=== PATIENT | female | born 1975 | race American Indian/Alaskan Native ===

== ENCOUNTER 2017-02-24 11:20 | Emergency (ER) | payer SELFPAY ==
[2017-02-24 11:30] VITALS: O2SAT 97
[2017-02-24 11:55] VITALS: BMI 34.2
--- NOTE | 2017-02-24 12:20 | ED PDOC ---
Arrival/HPI - General Chief Complaint: Chest Pain Time Seen by Provider: 02/24/17 11:26 Historian: Patient - History of Present Illness Narrative History of Present Illness (Text): 02/24/17 12:18The pt is a 41yo female, Past medical history of asthma, hypertension, TIA, presents to the Emergency department for evaluation of chest pain, present since last night. Pt reports she was laying in bed and felt stressed; reports intermittent and sharp pain to her left ribs and chest. Also reports anxiety with associated palpitations. Pt reports she woke up this morning and her symptoms were still present, prompting her visit to the Emergency department. She denies any chest pain at present and offers no additional medical complaints. PMD: Dr. Brown Time/Duration: Other (since last night) Quality: Other (intermittnent, sharp) Past Medical History - Provider Review Nursing Documentation Reviewed: Yes - Past History Past History: Non-Contributing - Infectious Disease Hx of Infectious Diseases: None - Tetanus Immunization Tetanus Immunization: Up to Date - Past Medical History Past Medical History: No Previous - Cardiac Hx Cardiac Disorders: Yes Hx Hypertension: Yes Hx Mitral Valve Prolapse: (mitral valve regurgitation) - Pulmonary Hx Asthma: Yes - Neurological Hx Neurological Disorder: Yes Hx Transient Ischemic Attacks (TIA): Yes Other/Comment: hypo kalemia - HEENT Hx HEENT Disorder: No - Renal Hx Renal Disorder: No - Endocrine/Metabolic Hx Endocrine Disorders: No - Hematological/Oncological Hx Blood Disorders: No - Integumentary Hx Dermatological Disorder: No - Musculoskeletal/Rheumatological Hx Musculoskeletal Disorders: No - Gastrointestinal Hx Gastrointestinal Disorders: No - Genitourinary/Gynecological Hx Genitourinary Disorders: No - Psychiatric Hx Psychophysiologic Disorder: Yes Hx Anxiety: Yes Hx Substance Use: No - Surgical History Hx Cholecystectomy: Yes - Anesthesia Hx Anesthesia: Yes Hx Anesthesia Reactions: No Hx Malignant Hyperthermia: No - Suicidal Assessment Feels Threatened In Home Enviroment: No Family/Social History Family/Social History: Unknown Family HX Smoking Status: Current Some Days Smoker Hx Alcohol Use: No Hx Substance Use: No Hx Substance Use Treatment: No Allergies/Home Meds Allergies/Adverse Reactions: Allergies aleeve Allergy (Uncoded 02/24/17 11:57) RASH seafood Allergy (Uncoded 02/24/17 11:56) ANAPHYLAXIS Home Medications: Home Meds Medication Instructions Recorded Confirmed Metoprolol Succinate 50 mg PO DAILY 09/24/14 04/27/15 Alprazolam [Alprazolam] 2 mg PO DAILY 04/03/15 04/27/15 Review of Systems - Review of Systems Cardiovascular: Other (left sided rib pain) Psychiatric: Anxiety Physical Exam Vital Signs Pulse Resp BP Pulse Ox 02/24/17 11:29 70 16 142/90 97 Appearance: Positive for: Well-Appearing, Non-Toxic, Comfortable - Systems Exam Head: Present: Atraumatic, Normocephalic Pupils: Present: PERRL Extroacular Muscles: Present: EOMI Conjunctiva: Present: Normal Mouth: Present: Moist Mucous Membranes Neck: Present: Normal Range of Motion Respiratory/Chest: Present: Clear to Auscultation, Good Air Exchange. No: Respiratory Distress, Accessory Muscle Use Cardiovascular: Present: Regular Rate and Rhythm, Normal S1, S2. No: Murmurs Abdomen: Present: Normal Bowel Sounds. No: Tenderness, Distention, Peritoneal Signs Back: Present: Normal Inspection Upper Extremity: Present: Normal Inspection. No: Cyanosis, Edema Lower Extremity: Present: Normal Inspection. No: Edema Neurological: Present: GCS=15, CN II-XII Intact, Speech Normal Skin: Present: Warm, Dry, Normal Color. No: Rashes Psychiatric: Present: Alert, Oriented x 3, Normal Insight, Normal Concentration Medical Decision Making ED Course and Treatment: 02/24/17 12:21 Impression: Chest pain secondary to anxiety; low risk for ACS Differential Diagnosis included but are not limited to: Plan: -- Cardiac ISO -- CMP -- CBC -- Magnesium -- CXR -- Reassess and disposition Progress Notes: 02/24/17 13:00 HEART Score 1. Low risk for ACS and symptoms have been constant since last night with a negative troponin. Currently patient still does not have any symptoms. She feels better and wants to go home with follow up. She will make sure to follow up with Dr. Brown and a appliance repair technician. Advised to return to the ED if symptoms worsen or any other concern. - Lab Interpretations Lab Results: 02/24/17 11:40 02/24/17 11:40 Lab Results 02/24/17 11:40: Sodium 140, Potassium 3.5 L, Chloride 106, Carbon Dioxide 27, Anion Gap 11, BUN 13, Creatinine 0.7, Est GFR ( Amer) > 60, Est GFR (Non- Af Amer) > 60, Random Glucose 84, Calcium 8.9, Magnesium 1.9, Total Bilirubin 1.1, AST 23, ALT 24, Alkaline Phosphatase 48, Lactate Dehydrogenase 368, Total Creatine Kinase 117, Troponin I < 0.01, Total Protein 7.2, Albumin 3.8, Globulin 3.4, Albumin/Globulin Ratio 1.1 02/24/17 11:40: WBC 7.5 D, RBC 4.55, Hgb 13.5, Hct 39.9, MCV 87.7, MCH 29.7, MCHC 33.8, RDW 12.8, Plt Count 228, MPV 10.2, Gran % 62.1, Lymph % (Auto) 26.1, Pierce % (Auto) 7.2 H, Eos % (Auto) 4.1, Baso % (Auto) 0.5, Gran # 4.67, Lymph # 2.0, Pierce # 0.5, Eos # 0.3, Baso # 0.04 I have reviewed the lab results: Yes Interpretation: Abnormal lab values (potassium low and replaced) - RAD Interpretation Radiology Orders: 02/24/17 12:05 CHEST PORTABLE [RAD] Stat Caul Dresser: ED Physician - Medication Orders Current Medication Orders: Discontinued Medications Potassium Chloride (K-Dur 20 Meq Er Tab) 40 meq PO STAT STA Stop: 02/24/17 12:46 Last Admin: 02/24/17 12:53 Dose: 40 meq - Ivisibe Statement The provider has reviewed the documentation as recorded by the Delfino Sol Provider Scribe Attestation: All medical record entries made by the Delfino were at my direction and personally dictated by me. I have reviewed the chart and agree that the record accurately reflects my personal performance of the history, physical exam, medical decision making, and the department course for this patient. I have also personally directed, reviewed, and agree with the discharge instructions and disposition. Disposition/Present on Arrival - Present on Arrival Any Indicators Present on Arrival: No History of DVT/PE: No History of Uncontrolled Diabetes: No Urinary Catheter: No History of Decub. Ulcer: No History Surgical Site Infection Following: None - Disposition Have Diagnosis and Disposition been Completed?: Yes Diagnosis: Atypical chest pain Disposition: HOME/ ROUTINE Disposition Time: 13:02 Patient Plan: Discharge Patient Problems: Current Active Problems Problem Status Onset Atypical chest pain Acute Condition: IMPROVED Discharge Instructions (ExitCare): Chest Pain (ED) Additional Instructions: Ms Garnica, thank you for letting us take care of you today. Your provider was Dr. Aviles. You were treated for Chest Pain. The emergency medical care you received today was directed at your acute symptoms. If you were prescribed any medication, please fill it and take as directed. It may take several days for your symptoms to resolve. Return to the Emergency Department if your symptoms worsen, do not improve, or if you have any other problems. Please contact your doctor or call one of the physicians/clinics you have been referred to that are listed on the Patient Visit Information form that is included in your discharge packet. Bring any paperwork you were given at discharge with you along with any medications you are taking to your follow up visit. Our treatment cannot replace ongoing medical care by a primary care provider (PCP) outside of the emergency department. Thank you for allowing the [facility] team to be part of your care today. If you had an X-Ray or CT scan: A Radiologist will review the ED reading if any change in treatment is needed we will contact you. If you had a blood, urine, or wound culture: It will take several days for the results, if any change in treatment is needed we will contact you. If you had an STI test: It will take 48 hours for the results. Please call after 1 week if you have not heard back. Referrals: Kb Brown MD [Medical Doctor] - Follow up with primary Forms: [employer] (Romanian), WORK NOTE
[2017-02-24 12:30] LABS: BASO # 0.04 K/mm3 (0.0-2.0); BASO % 0.5 % (0.0-3.0); EOS # 0.3 (0.0-0.7); EOS % 4.1 % (1.5-5.0); GRAN # 4.67 (1.4-6.5); GRAN % 62.1 % (50.0-68.0); HEMOGLOBIN 13.5 gm/dL (12.0-16.0); LYMPH % 26.1 % (22.0-35.0); MEAN CELL VOLUME 87.7 fL (80.0-105.0); MEAN CORPUSCULAR HEMOGLOBIN 29.7 pg (25.0-35.0); MEAN CORPUSCULAR HGB CONC 33.8 g/dl (31.0-37.0); MEAN PLATELET VOLUME 10.2 fl (7.0-11.0); MONO # 0.5 (0.1-0.6); MONO % 7.2 % (1.0-6.0); PLATELET COUNT 228 10^3/uL (120.0-450.0); RBC 4.55 10^6/uL (3.5-6.1); RED CELL DISTRIBUTION WIDTH 12.8 % (11.5-14.5); WHITE BLOOD COUNT 7.5 10^3/ul (4.5-11.0)
[2017-02-24 12:43] LABS: ALB/GLOB RATIO 1.1 (1.1-1.8); ALBUMIN 3.8 g/dL (3.0-4.8); ALT/SGPT 24 U/L (7-56); AST/SGOT 23 U/L (15-39); BLOOD UREA NITROGEN 13 mg/dL (7-21); CALCIUM 8.9 mg/dL (8.4-10.5); GFR AFRICAN-AMERICAN > 60; GFR NON-AFRICAN AMERICAN > 60; MAGNESIUM 1.9 mg/dL (1.7-2.2)
[2017-02-24] MEDS ORDERED: Potassium Chloride 20 mEq ER Tab PO STA (12:45)
[2017-02-24 12:54] LABS: TROPONIN I < 0.01 ng/mL
[2017-02-24 13:03] VITALS: BP 138/83; PULSE 65; RESP 18; TEMP 98
--- NOTE | 2017-02-24 13:03 | RAD ---
HISTORY: chest pain COMPARISON: 09/24/2014 FINDINGS: LUNGS: No active pulmonary disease. PLEURA: No significant pleural effusion identified, no pneumothorax apparent. CARDIOVASCULAR: Normal. OSSEOUS STRUCTURES: No significant abnormalities. VISUALIZED UPPER ABDOMEN: Normal. OTHER FINDINGS: None. IMPRESSION: No active disease.
--- NOTE | 2017-02-25 16:46 | CARD ---
APPROVED REPORT EKG Measurement Heart [id number] <Conclusion> Normal sinus rhythm Anterior infarct, age undetermined Abnormal ECG
== END 2017-02-24 13:04 | disposition home or self-care (01) ==
LOC: ED 11:20
DX: R07.89 Other chest pain (principal); I10 Essential (primary) hypertension

== ENCOUNTER 2017-05-04 18:07 | Emergency (ER) | payer MEDICAID, OTHER ==
[2017-05-04 18:07] VITALS: BMI 34.2
[2017-05-04 18:16] VITALS: RESP 18; TEMP 98.1; O2SAT 100
--- NOTE | 2017-05-04 18:20 | ED PDOC ---
"Arrival/HPI - General Chief Complaint: Female Genitourinary Time Seen by Provider: 05/04/17 18:13 Historian: Patient - History of Present Illness Narrative History of Present Illness (Text): 05/04/17 18:17 42 y/o female, pmh including colitis/gastritis, allergic to nsaid, c/o left sided abdominal pain x 3 days. Pt. lt. sided abdominal pain with the lt. suprapubic pressure, burning senation, no vaginal bleeding or discharge, no flank pain, no nigh sweat, no dizziness, no nausea or vomiting, no change in energy level or appetite, no other medical or psychological complaints. Past Medical History - Provider Review Nursing Documentation Reviewed: Yes - Past History Past History: Non-Contributing - Infectious Disease Hx of Infectious Diseases: None - Tetanus Immunization Tetanus Immunization: Up to Date - Past Medical History Past Medical History: No Previous - Cardiac Hx Cardiac Disorders: Yes Hx Hypertension: Yes Hx Mitral Valve Prolapse: (mitral valve regurgitation) - Pulmonary Hx Asthma: Yes - Neurological Hx Neurological Disorder: Yes Hx Transient Ischemic Attacks (TIA): Yes Other/Comment: hypo kalemia - HEENT Hx HEENT Disorder: No - Renal Hx Renal Disorder: No - Endocrine/Metabolic Hx Endocrine Disorders: No - Hematological/Oncological Hx Blood Disorders: No - Integumentary Hx Dermatological Disorder: No - Musculoskeletal/Rheumatological Hx Musculoskeletal Disorders: No - Gastrointestinal Hx Gastrointestinal Disorders: No - Genitourinary/Gynecological Hx Genitourinary Disorders: No - Psychiatric Hx Psychophysiologic Disorder: Yes Hx Anxiety: Yes Hx Substance Use: No - Surgical History Hx Cholecystectomy: Yes - Anesthesia Hx Anesthesia: Yes Hx Anesthesia Reactions: No Hx Malignant Hyperthermia: No - Suicidal Assessment Feels Threatened In Home Enviroment: No Family/Social History - Physician Review Nursing Documentation Reviewed: Yes Family/Social History: Unknown Family HX Smoking Status: Former Smoker Hx Alcohol Use: No Hx Substance Use: No Hx Substance Use Treatment: No Allergies/Home Meds Allergies/Adverse Reactions: Allergies aleeve Allergy (Uncoded 05/04/17 18:16) RASH seafood Allergy (Uncoded 05/04/17 18:16) ANAPHYLAXIS Home Medications: Home Meds Medication Instructions Recorded Confirmed Metoprolol Succinate 50 mg PO DAILY 09/24/14 05/04/17 Alprazolam [Alprazolam] 2 mg PO DAILY 04/03/15 05/04/17 Review of Systems - Review of Systems Constitutional: absent: Fatigue, Fevers Eyes: absent: Vision Changes ENT: absent: Hearing Changes Respiratory: absent: SOB, Cough Cardiovascular: absent: Chest Pain Gastrointestinal: Abdominal Pain. absent: Nausea, Vomiting Genitourinary Female: absent: Hematuria, Urine Output Changes, Vaginal Bleeding , Vaginal Discharge Skin: absent: Rash, Pruritis Neurological: absent: Headache, Dizziness Physical Exam Vital Signs Reviewed: Yes Vital Signs Temp Pulse Resp BP Pulse Ox 05/04/17 21:34 81 18 141/71 100 05/04/17 18:09 98.1 F 87 18 128/86 100 Temperature: Afebrile Blood Pressure: Normal Pulse: Regular Respiratory Rate: Normal Appearance: Positive for: Well-Appearing, Non-Toxic, Comfortable Pain Distress: Mild Mental Status: Positive for: Alert and Oriented X 3 - Systems Exam Head: Present: Atraumatic, Normocephalic Pupils: Present: PERRL Extroacular Muscles: Present: EOMI Conjunctiva: Present: Normal Mouth: Present: Moist Mucous Membranes Neck: Present: Normal Range of Motion Respiratory/Chest: Present: Clear to Auscultation, Good Air Exchange. No: Respiratory Distress, Accessory Muscle Use Cardiovascular: Present: Regular Rate and Rhythm, Normal S1, S2. No: Murmurs Abdomen: Present: Tenderness (+LLQ and abdomen region), Normal Bowel Sounds. No : Distention, Peritoneal Signs, Rebound, Guarding Genitourinary/Pelvic Exam: Present: Other (pt. deferred) Back: Present: Normal Inspection. No: CVA Tenderness, Midline Tenderness, Paraspinal Tenderness, Pain with Leg Raise Upper Extremity: Present: Normal Inspection. No: Cyanosis, Edema Lower Extremity: Present: Normal Inspection. No: Edema Neurological: Present: GCS=15, Speech Normal, Motor Func Grossly Intact, Gait Normal, Memory Normal Skin: Present: Warm, Dry, Normal Color. No: Rashes Psychiatric: Present: Alert, Oriented x 3, Normal Insight, Normal Concentration Medical Decision Making ED Course and Treatment: 05/04/17 18:21 -ua/ -observe and reassess 05/04/17 19:02 -UA show no UTI -Urine hcg negative -Pt. refused pelvic, refused HIV and STI test as she feels this is not obgyn related or STD related problem, refused prophylatic treatment as well. -labs/CT abdomen and pelvis ordered -IVF/pepcid, observe an reassess 05/04/17 21:50 -labs show no acute findings except wbc 11.4 which she has no fever or chills, likely stress induced. -pelvic/transvaginal sonogram show: no ovarian torsion but Uterus: Endometrium measures approximately 7.4 mm in width. There is a 1 point to by 1 x 1.3 cm posterior fibroid. Myometrium is mildly heterogeneous. Right ovary: Right ovary measures approximately 2.55 x 2.17 x 2.48 cm. There are multiple small follicles. There is intraovarian blood flow. Left ovary: Left ovary measures approximately 4.34 x 2.33 x 2.34 cm. There are multiple small follicles. There is intraovarian blood flow. Free fluid: There is a small amount of free fluid in the pelvis. Bladder: Bladder is empty IMPRESSION: No torsion; small uterine fibroid -CT abdomen and pelvis : No acute solid visceral abnormality; cholecystectomy; probable fibroid uterus; small amount of fluid in the pelvis, physiologic versus recent cyst rupture; constipation -Pain resolved, discussed about the labs/radiology results with the patient, magnesium citrate ordered. -Discharge home with tylenol, magnesium citrate, follow up with your own pmd and GI/Obyn within 2 days, high fiber diet, return to the ER for any new or worsening signs or symptoms. - Lab Interpretations Lab Results: 05/04/17 19:37 05/04/17 19:37 Lab Results 05/04/17 19:37: WBC 11.4 H D, RBC 4.52, Hgb 13.3, Hct 39.3, MCV 86.9, MCH 29.4, MCHC 33.8, RDW 12.8, Plt Count 202, MPV 9.7, Gran % 57.8, Lymph % (Auto) 27.0, Carver % (Auto) 6.0, Eos % (Auto) 8.8 H, Baso % (Auto) 0.4, Gran # 6.55 H, Lymph # 3.1, Carver # 0.7 H, Eos # 1.0 H, Baso # 0.05 05/04/17 19:37: Sodium 138, Potassium 3.9, Chloride 103, Carbon Dioxide 27, Anion Gap 12, BUN 13, Creatinine 0.7, Est GFR ( Amer) > 60, Est GFR (Non- Af Amer) > 60, Random Glucose 106, Calcium 8.8, Total Bilirubin 0.9, AST 32, ALT 30, Alkaline Phosphatase 58, Total Protein 7.5, Albumin 3.7, Globulin 3.7, Albumin/Globulin Ratio 1.0 L, Lipase 112 05/04/17 18:23: Urine Color Yellow, Urine Appearance Clear, Urine pH 6.0, Ur Specific [place] >= 1.030, Urine Protein Negative, Urine Glucose (UA) Negative, Urine Ketones Negative, Urine Blood Negative, Urine Nitrate Negative, Urine Bilirubin Negative, Urine Urobilinogen 1.0 H, Ur Leukocyte Esterase Negative I have reviewed the lab results: Yes Interpretation: Abnormal lab values (wbc 11.4) - RAD Interpretation Radiology Orders: 05/04/17 19:00 ABD PELVIS PO & IV CONTRAST [CT] Stat 05/04/17 19:03 TRANSVAGINAL [US] Stat Transvaginal: CLINICAL HISTORY: 42 years old, female; Pain; Pelvic pain; Additional info: Lt. Sided pelvic pain LMP 04/17/17 TECHNIQUE: Real-time transabdominal pelvic ultrasound (complete) with image documentation. COMPARISON: Pelvic ultrasound 04/03/15 FINDINGS: Uterus: Uterus measures approximately 9.4 x 6.2 x 7.3 cm. Endometrium measures approximately 6 mm in width. Myometrium is heterogeneous. Right ovary: Right ovary measures approximately 2.8 x 2 x 2.4 cm. There are multiple small follicles. There is intraovarian blood flow. Left ovary: Left ovary measures approximately 3.2 x 2.4 x 2.2 cm. There are multiple small follicles. There is intraovarian blood flow. Free fluid:There is trace free fluid. Bladder: Bladder is empty and cannot be evaluated IMPRESSION: Unremarkable transabdominal pelvic ultrasound EXAM: NOLAN MYLES | Final Radiology Report CONFIDENTIALITY STATEMENT This report is intended only for use by the referring physician, and only in accordance with law. If you received this in error, call [phone]. Page 2 of 2 US Pelvis, Transvaginal EXAM DATE/TIME: 05/04/2017 7:03 PM CLINICAL HISTORY: 42 years old, female; Pain; Pelvic pain; Additional info: Lt. Sided pelvic pain LMP 04/17/17 TECHNIQUE: Real-time transvaginal pelvic ultrasound (complete) with image documentation. Transvaginal imaging was used for better evaluation of the endometrium and adnexa. COMPARISON: US - TRANSVAGINAL 04/03/2015 7:19:29 PM FINDINGS: Uterus: Endometrium measures approximately 7.4 mm in width. There is a 1 point to by 1 x 1.3 cm posterior fibroid. Myometrium is mildly heterogeneous. Right ovary: Right ovary measures approximately 2.55 x 2.17 x 2.48 cm. There are multiple small follicles. There is intraovarian blood flow. Left ovary: Left ovary measures approximately 4.34 x 2.33 x 2.34 cm. There are multiple small follicles. There is intraovarian blood flow. Free fluid: There is a small amount of free fluid in the pelvis. Bladder: Bladder is empty IMPRESSION: No torsion; small uterine fibroid - ..... Thank you for allowing us to participate in the care of your patient. Dictated and Authenticated by: Cheri Arora MD 05/04/2017 9:12 PM Eastern Time ([place] & [place]) CT Abdomen and pelvis: FINDINGS: Lower thorax: Heart size is normal. There is a small hiatal hernia. There is minimal scarring at the lung bases. ABDOMEN: Liver: unremarkable Gallbladder and bile ducts: Gallbladder is surgically absent. Common duct is unremarkable. Pancreas: unremarkable Spleen: unremarkable Adrenals: unremarkable Kidneys and ureters: There is right renal scarring. Left kidney is unremarkable.There is no pelvocaliectasis or ureterectasis. NOLAN MYLES | Final Radiology Report CONFIDENTIALITY STATEMENT This report is intended only for use by the referring physician, and only in accordance with law. If you received this in error, call [phone]. Page 2 of 2 Stomach and bowel: Stomach is distended with an air-fluid level. Rotation is normal. Small bowel is incompletely opacified with oral contrast. There is no obstruction. Terminal ileum is unremarkable. Appendix is unremarkable. There is a moderately large amount of stool in the colon. Appendix: See above. PELVIS: Bladder: unremarkable Reproductive: Uterus is mildly enlarged. There is a corpus luteum in the right ovary. Left ovary is unremarkable. ABDOMEN and PELVIS: Intraperitoneal space: There is a small amount of fluid in the cul-de-sac. There is no free air. Bones/joints: There are no acute osseous abnormalities Soft tissues: There is a small fat containing umbilical hernia. Vasculature: There are calcified phleboliths. Vascular structures are unremarkable. Lymph nodes: There is no pathologic adenopathy. IMPRESSION: No acute solid visceral abnormality; cholecystectomy; probable fibroid uterus; small amount of fluid in the pelvis, physiologic versus recent cyst rupture; constipation Thank you for allowing us to participate in the care of your patient. Dictated and Authenticated by: Cheri Arora MD 05/04/2017 9:43 PM Eastern Time ([place] & [place]) Media Librarian: Radiologist - Medication Orders Current Medication Orders: Discontinued Medications Famotidine (Pepcid) 20 mg IVP STAT STA Stop: 05/04/17 19:01 Last Admin: 05/04/17 19:42 Dose: 20 mg Sodium Chloride (Sodium Chloride 0.9%) 1,000 mls @ 999 mls/hr IV .Q1H1M STA Stop: 05/04/17 20:00 Last Admin: 05/04/17 19:42 Dose: 999 mls/hr Iohexol (Omnipaque 240 (50 Ml)) Confirm Administered Dose 50 ml .ROUTE .STK-MED ONE Stop: 05/04/17 19:05 Iohexol (Omnipaque 350 100 Ml) Confirm Administered Dose 350 mg .ROUTE .STK-MED ONE Stop: 05/04/17 20:19 - PA / COUNTY DIRECTOR WELFARE / Resident Statement MD/DO has reviewed & agrees with the documentation as recorded. Disposition/Present on Arrival - Present on Arrival Any Indicators Present on Arrival: No History of DVT/PE: No History of Uncontrolled Diabetes: No Urinary Catheter: No History of Decub. Ulcer: No History Surgical Site Infection Following: None - Disposition Have Diagnosis and Disposition been Completed?: Yes Diagnosis: Uterine fibroid, Ovarian cyst, Constipation Disposition: HOME/ ROUTINE Disposition Time: 18:22 Patient Plan: Discharge Patient Problems: Current Active Problems Problem Status Onset Uterine fibroid Acute Ovarian cyst Acute Condition: IMPROVED Additional Instructions: Discharge home with tylenol, magnesium citrate, follow up with your own pmd and GI/Obyn within 2 days, high fiber diet, return to the ER for any new or worsening signs or symptoms. Prescriptions: Acetaminophen [Tylenol Extra Strength] 500 mg PO QID PRN #30 tablet PRN Reason: Other Referrals: Kb Brown MD [Primary Care Provider] - Follow up with primary Heide CLARK,MD Sammy [Medical Doctor] - Follow up with primary Niesha Davis MD [Staff Provider] - Follow up with primary Forms: [facility] [employer] (Greenlandic), WORK NOTE"
[2017-05-04 18:35] LABS: URINE BILIRUBIN NEGATIVE (NEGATIVE); URINE BLOOD NEGATIVE (NEGATIVE); URINE GLUCOSE (UA) NEGATIVE (NEGATIVE); URINE KETONE NEGATIVE (NEGATIVE); URINE LEUKOCYTE ESTERASE NEGATIVE Leu/uL (NEGATIVE); URINE PROTEIN NEGATIVE mg/dL (<30 mg/dL)
[2017-05-04 18:50] LABS: URINE APPEARANCE CLEAR (CLEAR); URINE COLOR YELLOW (YELLOW)
[2017-05-04] MEDS ORDERED: Sodium Chloride 0.9% 1,000 ML IV STA (19:00)
[2017-05-04] MEDS ORDERED: Iohexol 240 (50 ml) ONE (19:04)
[2017-05-04 19:58] LABS: BASO # 0.05 K/mm3 (0.0-2.0); BASO % 0.4 % (0.0-3.0); EOS % 8.8 % (1.5-5.0); GRAN # 6.55 (1.4-6.5); GRAN % 57.8 % (50.0-68.0); HEMATOCRIT 39.3 % (36.0-48.0); LYMPH # 3.1 (1.2-3.4); MEAN CELL VOLUME 86.9 fl (80.0-105.0); MEAN CORPUSCULAR HEMOGLOBIN 29.4 pg (25.0-35.0); MEAN CORPUSCULAR HGB CONC 33.8 g/dl (31.0-37.0); MEAN PLATELET VOLUME 9.7 fl (7.0-11.0); MONO # 0.7 (0.1-0.6); RED CELL DISTRIBUTION WIDTH 12.8 % (11.5-14.5); WHITE BLOOD COUNT 11.4 10^3/ul (4.5-11.0)
[2017-05-04 20:08] LABS: ALKALINE PHOSPHATASE 58 U/L (38-126); ALT/SGPT 30 U/L (7-56); AST/SGOT 32 U/L (14-36); BILIRUBIN,TOTAL 0.9 mg/dL (0.2-1.3); BLOOD UREA NITROGEN 13 mg/dL (7-21); CALCIUM 8.8 mg/dL (8.4-10.5); CARBON DIOXIDE 27 mmol/L (21-33); CHLORIDE 103 mmol/L (95-110); GFR AFRICAN-AMERICAN > 60; GLUCOSE,RANDOM 106 mg/dL (70-110); LIPASE 112 U/L (23-300); POTASSIUM 3.9 mmol/L (3.6-5.0); SODIUM 138 mmol/L (132-148); TOTAL PROTEIN 7.5 g/dL (5.8-8.3)
[2017-05-04] MEDS ORDERED: Iohexol 350 MG/100 ML VIAL ONE (20:18)
--- NOTE | 2017-05-04 21:13 | US ---
EXAM: US Pelvis Complete, Transabdominal CLINICAL HISTORY: 42 years old, female; Pain; Pelvic pain; Additional info: Lt. Sided pelvic pain LMP 04/17/17 TECHNIQUE: Real-time transabdominal pelvic ultrasound (complete) with image documentation. COMPARISON: Pelvic ultrasound 04/03/15 FINDINGS: Uterus: Uterus measures approximately 9.4 x 6.2 x 7.3 cm. Endometrium measures approximately 6 mm in width. Myometrium is heterogeneous. Right ovary: Right ovary measures approximately 2.8 x 2 x 2.4 cm. There are multiple small follicles. There is intraovarian blood flow. Left ovary: Left ovary measures approximately 3.2 x 2.4 x 2.2 cm. There are multiple small follicles. There is intraovarian blood flow. Free fluid:There is trace free fluid. Bladder: Bladder is empty and cannot be evaluated IMPRESSION: Unremarkable transabdominal pelvic ultrasound EXAM: US Pelvis, Transvaginal EXAM DATE/TIME: 05/04/2017 7:03 PM CLINICAL HISTORY: 42 years old, female; Pain; Pelvic pain; Additional info: Lt. Sided pelvic pain LMP 04/17/17 TECHNIQUE: Real-time transvaginal pelvic ultrasound (complete) with image documentation. Transvaginal imaging was used for better evaluation of the endometrium and adnexa. COMPARISON: US - TRANSVAGINAL 04/03/2015 7:19:29 PM FINDINGS: Uterus: Endometrium measures approximately 7.4 mm in width. There is a 1 point to by 1 x 1.3 cm posterior fibroid. Myometrium is mildly heterogeneous. Right ovary: Right ovary measures approximately 2.55 x 2.17 x 2.48 cm. There are multiple small follicles. There is intraovarian blood flow. Left ovary: Left ovary measures approximately 4.34 x 2.33 x 2.34 cm. There are multiple small follicles. There is intraovarian blood flow. Free fluid: There is a small amount of free fluid in the pelvis. Bladder: Bladder is empty IMPRESSION: No torsion; small uterine fibroid - .....
[2017-05-04 21:35] VITALS: BP 141/71; PULSE 81
--- NOTE | 2017-05-04 21:44 | CT ---
EXAM: CT Abdomen and Pelvis With Intravenous Contrast EXAM DATE/TIME: 05/04/2017 7:00 PM CLINICAL HISTORY: 42 years old, female; Pain; Abdominal pain; Localized; Left; Additional info: Lt. Sided abdominal pain, burning x 3 days TECHNIQUE: Axial computed tomography images of the abdomen and pelvis with intravenous contrast. All CT scans at this facility use one or more dose reduction techniques, viz.: automated exposure control; ma/kV adjustment per patient size (including targeted exams where dose is matched to indication; i.e. head); or iterative reconstruction technique. Coronal and sagittal reformatted images were created and reviewed. CONTRAST: 100 mL of OMNI administered intravenously. COMPARISON: Prior images are not available for review. FINDINGS: Lower thorax: Heart size is normal. There is a small hiatal hernia. There is minimal scarring at the lung bases. ABDOMEN: Liver: unremarkable Gallbladder and bile ducts: Gallbladder is surgically absent. Common duct is unremarkable. Pancreas: unremarkable Spleen: unremarkable Adrenals: unremarkable Kidneys and ureters: There is right renal scarring. Left kidney is unremarkable.There is no pelvocaliectasis or ureterectasis. Stomach and bowel: Stomach is distended with an air-fluid level. Rotation is normal. Small bowel is incompletely opacified with oral contrast. There is no obstruction. Terminal ileum is unremarkable. Appendix is unremarkable. There is a moderately large amount of stool in the colon. Appendix: See above. PELVIS: Bladder: unremarkable Reproductive: Uterus is mildly enlarged. There is a corpus luteum in the right ovary. Left ovary is unremarkable. ABDOMEN and PELVIS: Intraperitoneal space: There is a small amount of fluid in the cul-de-sac. There is no free air. Bones/joints: There are no acute osseous abnormalities Soft tissues: There is a small fat containing umbilical hernia. Vasculature: There are calcified phleboliths. Vascular structures are unremarkable. Lymph nodes: There is no pathologic adenopathy. IMPRESSION: No acute solid visceral abnormality; cholecystectomy; probable fibroid uterus; small amount of fluid in the pelvis, physiologic versus recent cyst rupture; constipation
[2017-05-04] MEDS ORDERED: Magnesium Citrate Oral SOL (300 ml) PO ONE (21:49)
== END 2017-05-04 22:09 | disposition home or self-care (01) ==
LOC: ED 18:07
DX: K59.00 Constipation, unspecified (principal); D25.9 Leiomyoma of uterus, unspecified; N83.209 Unspecified ovarian cyst, unspecified side
CPT/HCPCS: 74177; 76830; 80053; 81003; 83690; 85025; 96374; 99284; J7040; Q9966; Q9967

== ENCOUNTER → 2017-05-16 | Emergency (ER) | payer OTHER ==
[2017-05-16 04:10] VITALS: BP 128/82; PULSE 73; RESP 17; TEMP 97.8; O2SAT 100
[2017-05-16 04:17] VITALS: BMI 35.6
== END | disposition left against medical advice (07) ==
LOC: ED 04:03
DX: Z02.89 Encounter for other administrative examinations (principal); R51 Headache

== ENCOUNTER 2017-11-04 08:02 | Observation (INO) | payer MEDICAID, OTHER ==
--- NOTE | 2017-11-04 08:40 | ED PDOC ---
Arrival/HPI - General Chief Complaint: Chest Pain Time Seen by Provider: 11/04/17 08:34 Historian: Patient, EMS - History of Present Illness Narrative History of Present Illness (Text): 11/04/17 08:37 pt p/w + < 1 day onset of left sided chest pain, radiating to mid left chest; at most pain is 6-7/10; slightly waxing and waning; pt took yeni seltzer without relief; pt states + mild nausea, no vomiting, no fever/chills/sweats, no sob/palpitations, no lightheadedness/dizziness, no numbness/tingling, no facial changes, no slurr speech, no abd pain, no n/v, no focal weakness, no rashes, no gross bleeding; pt states she was driving her car home when the chest pain occurred; pt states no LOC; no fall/trauma/sick contact, no travel; pt is here for further eval; pt's without other complaints PCP: Ritika Brown Last cardiac check ~ 2012? 2008 dx with TIA pt states she had chest pain in 2011 and was told she had low K Time/Duration: 24 hours Symptom Onset: Sudden Symptom Course: Unchanged Quality: Tightness, Cramping Severity Level: 6, Severe Activities at Onset: Rest Context: Home Past Medical History - Provider Review Nursing Documentation Reviewed: Yes - Travel History Have you recently traveled outside [place] w/in the past 3 mons?: No - Past History Past History: Non-Contributing - Infectious Disease Hx of Infectious Diseases: None - Tetanus Immunization Tetanus Immunization: Up to Date - Reproductive Menopause: No Currently : No - Past Medical History Past Medical History: No Previous - Cardiac Hx Cardiac Disorders: Yes Hx Hypertension: Yes Hx Mitral Valve Prolapse: (mitral valve regurgitation) Other/Comment: Hx of low K+ - Pulmonary Hx Asthma: Yes - Neurological Hx Neurological Disorder: Yes Hx Transient Ischemic Attacks (TIA): Yes Other/Comment: hypo kalemia - HEENT Hx HEENT Disorder: No - Renal Hx Renal Disorder: No - Endocrine/Metabolic Hx Endocrine Disorders: No - Hematological/Oncological Hx Blood Disorders: No - Integumentary Hx Dermatological Disorder: No - Musculoskeletal/Rheumatological Hx Musculoskeletal Disorders: No - Gastrointestinal Hx Gastrointestinal Disorders: No - Genitourinary/Gynecological Hx Genitourinary Disorders: No - Psychiatric Hx Psychophysiologic Disorder: Yes Hx Anxiety: Yes Hx Substance Use: No - Surgical History Hx Cholecystectomy: Yes - Anesthesia Hx Anesthesia: Yes Hx Anesthesia Reactions: No Hx Malignant Hyperthermia: No - Suicidal Assessment Feels Threatened In Home Enviroment: No Family/Social History - Physician Review Nursing Documentation Reviewed: Yes Family/Social History: No Known Family HX Smoking Status: Former Smoker Hx Alcohol Use: No Hx Substance Use: No Hx Substance Use Treatment: No Allergies/Home Meds Allergies/Adverse Reactions: Allergies aleeve Allergy (Uncoded 11/04/17 08:28) RASH seafood Allergy (Uncoded 11/04/17 08:28) ANAPHYLAXIS Home Medications: Home Meds Medication Instructions Recorded Confirmed Metoprolol Succinate 50 mg PO DAILY 09/24/14 11/04/17 Alprazolam [Alprazolam] 2 mg PO DAILY PRN 04/03/15 11/04/17 Albuterol HFA [Ventolin HFA] 1 puff IH QID PRN 11/04/17 11/04/17 Aspirin [Aspirin Chewable] 81 mg PO DAILY 11/04/17 11/04/17 Review of Systems - Review of Systems Constitutional: Normal Eyes: Normal ENT: Normal Respiratory: absent: SOB Cardiovascular: Chest Pain Gastrointestinal: Normal, Nausea. absent: Abdominal Pain, Vomiting Genitourinary Female: Normal Musculoskeletal: Normal Skin: Normal Neurological: Normal Endocrine: Normal Hemo/Lymphatic: Normal Psychiatric: Normal Physical Exam Vital Signs Reviewed: Yes Vital Signs Temp Pulse Pulse Resp BP Pulse Ox 11/04/17 10:39 68 18 122/75 98 11/04/17 08:50 66 11/04/17 08:18 97.8 F 67 18 132/73 97 Temperature: Afebrile Blood Pressure: Normal Pulse: Regular Respiratory Rate: Normal Appearance: Positive for: Well-Appearing, Non-Toxic, Uncomfortable, Other ( uncomfortable, alert/awake, GCS = 15, oriented x 3, NAD, cooperative, resting in bed) Pain Distress: None Mental Status: Positive for: Alert and Oriented X 3 - Systems Exam Head: Present: Atraumatic, Normocephalic Pupils: Present: PERRL, Other (no nystagmus, no photophobia, sclera anicteric, visual field intact b/l) Extroacular Muscles: Present: EOMI Conjunctiva: Present: Normal Ears: Present: Normal Mouth: Present: Moist Mucous Membranes, Normal Teeth, Other (no drooling/stridor , intact dentitions, uvula/tongue are midline) Pharnyx: Present: Normal Nose (External): Present: Atraumatic Nose (Internal): Present: Normal Inspection Neck: Present: Normal Range of Motion, Trachea Midline, Other (intact ROM, no midline tenderness, no nuchal rigidity, no meningeal signs). No: MIDLINE TENDERNESS Respiratory/Chest: Present: Clear to Auscultation, Good Air Exchange, Other ( CTA b/l, no w/r/r). No: Respiratory Distress, Accessory Muscle Use Cardiovascular: Present: Regular Rate and Rhythm, Normal S1, S2. No: Murmurs Abdomen: Present: Normal Bowel Sounds, Other (mild epigastric tenderness, no philip's sign, no mcburney's point tenderness, + well nourished/slightly obese female, no masses/rebound/guarding/rigidity) Back: Present: Normal Inspection. No: CVA Tenderness, Midline Tenderness Upper Extremity: Present: Normal Inspection, Normal ROM, NORMAL PULSES, Neurovascularly Intact, Capillary Refill < 2s Lower Extremity: Present: Normal Inspection, NORMAL PULSES, Normal ROM, Neurovascularly Intact, Capillary Refill < 2 s. No: CALF TENDERNESS, Valentina's Sign Neurological: Present: GCS=15, CN II-XII Intact, Speech Normal, Other (CNII-XII WNL, no facial asymmetries, no slurr speech) Skin: Present: Warm, Normal Color, Other (cap refill < 1sec, no ulcerations, no petechiae, no rashes) Psychiatric: Present: Alert, Oriented x 3 Medical Decision Making ED Course and Treatment: 11/04/17 08:44 Impression: chest pain i have consider all the differential diagnosis regarding pt's chief medical complaints/clinical findings, including but are not limited to: r/o ACS A/P: R/O ACS - labs - iv - acs eval - observe - supportive care 11/04/17 10:[address] Rishi Ross, medical service literacy education professor, made aware of pt's medical complaints, who agrees with admission/observation placement 11/04/17 1030 pt states chest pain is much improved following NTG medication pt is made aware of her medical results agrees with admission/observation placement Re-evaluation Time: 11:25 Reassessment Condition: Improved - Lab Interpretations Lab Results: 11/04/17 08:45 11/04/17 08:45 Lab Results 11/04/17 09:30: Urine Color Yellow, Urine Appearance Clear, Urine pH 5.5, Ur Specific [employer] >= 1.030, Urine Protein Trace H, Urine Glucose (UA) Negative, Urine Ketones Negative, Urine Blood Negative, Urine Nitrate Negative, Urine Bilirubin Negative, Urine Urobilinogen 0.2, Ur Leukocyte Esterase Negative, Urine RBC Negative, Urine WBC 1 - 3, Ur Epithelial Cells 6 - 8, Amorphous Sediment Few, Urine Bacteria Many, Urine Other Fiber 11/04/17 08:45: TSH 3rd Generation 0.77 11/04/17 08:45: Sodium 141, Potassium 4.2, Chloride 108 H, Carbon Dioxide 25, Anion Gap 13, BUN 18, Creatinine 0.7, Est GFR ( Amer) > 60, Est GFR (Non- Af Amer) > 60, Random Glucose 91, Calcium 9.0, Magnesium 2.0, Total Bilirubin 0.5, AST 36, ALT 30, Alkaline Phosphatase 49, Lactate Dehydrogenase 535, Total Creatine Kinase 214, Troponin I < 0.01, NT-Pro-B Natriuret Pep 43.9, Total Protein 7.1, Albumin 3.5, Globulin 3.6, Albumin/Globulin Ratio 1.0 L, Lipase 151 11/04/17 08:45: WBC 10.5, RBC 4.43, Hgb 12.9, Hct 37.6, MCV 84.9, MCH 29.1, MCHC 34.3, RDW 13.9, Plt Count 296, MPV 9.3, Gran % 64.8, Lymph % (Auto) 26.0, [place] % (Auto) 6.6 H, Eos % (Auto) 2.0, Baso % (Auto) 0.6, Gran # 6.82 H, Lymph # (Auto) 2.7, [place] # (Auto) 0.7 H, Eos # (Auto) 0.2, Baso # (Auto) 0.06 I have reviewed the lab results: Yes Interpretation: All labs normal - RAD Interpretation Narrative RAD Interpretations (Text): 11/04/17 11:29 NAD Radiology Orders: 11/04/17 08:34 CHEST TWO VIEWS (PA/LAT) [RAD] Stat Screw Machine Hand: ED Physician - EKG Interpretation EKG Interpretation (Text): 11/04/17 08:44 SR at 65 bpm, borderline 1st degree av block, normal axis, no ectopy, inverted T in leads III, no st changes, ABNL EKG; no gross changes compare with old ekg Interpreted by ED Physician: Yes Type: 12 lead EKG Comparison: Similar to previous EKG - Medication Orders Current Medication Orders: Albuterol/Ipratropium (Duoneb 3 Mg/0.5 Mg (3 Ml) Ud) 3 ml IH Q4H PRN PRN Reason: Shortness of Breath Alprazolam (Xanax) 2 mg PO DAILY PRN PRN Reason: Anxiety Aspirin (Aspirin Chewable) 81 mg PO DAILY MASOUD Enoxaparin Sodium (Lovenox) 40 mg SC DAILY MASOUD PRN Reason: Protocol Sodium Chloride (Sodium Chloride 0.9%) 1,000 mls @ 100 mls/hr IV .Q10H MASOUD Last Admin: 11/04/17 08:47 Dose: 100 mls/hr eMAR Start Stop Document 11/04/17 08:47 [facility] (Rec: 11/04/17 08:48 [facility] [id number]) Intravenous Solution Start Date 11/04/17 Start Time 08:47 Metoprolol Succinate (Toprol Xl) 50 mg PO DAILY MASOUD Pantoprazole Sodium (Protonix Ec Tab) 40 mg PO DAILY MASOUD Discontinued Medications Aspirin (Aspirin Chewable) 81 mg PO STAT STA Stop: 11/04/17 08:37 Last Admin: 11/04/17 08:48 Dose: 81 mg Nitroglycerin (Nitrostat Sl Tab) 0.4 mg SL STAT STA Stop: 11/04/17 08:36 Last Admin: 11/04/17 08:48 Dose: 0.4 mg Disposition/Present on Arrival - Present on Arrival Any Indicators Present on Arrival: No History of DVT/PE: No History of Uncontrolled Diabetes: No Urinary Catheter: No History of Decub. Ulcer: No History Surgical Site Infection Following: None - Disposition Have Diagnosis and Disposition been Completed?: Yes Diagnosis: Chest pain with minimal risk of acute coronary syndrome Disposition: HOSPITALIZED Disposition Time: 10:30 Patient Plan: Observation Condition: STABLE
[2017-11-04] MEDS ORDERED: Sodium Chloride 0.9% 1,000 ML IV SCH (08:45)
[2017-11-04 08:54] LABS: BASO # 0.06 K/mm3 (0.0-2.0); BASO % 0.6 % (0.0-3.0); EOS # 0.2 (0.0-0.7); GRAN # 6.82 (1.4-6.5); GRAN % 64.8 % (50.0-68.0); HEMOGLOBIN 12.9 g/dL (12.0-16.0); LYMPH # 2.7 (1.2-3.4); MEAN CELL VOLUME 84.9 fl (80.0-105.0); MEAN CORPUSCULAR HEMOGLOBIN 29.1 pg (25.0-35.0); MEAN CORPUSCULAR HGB CONC 34.3 g/dl (31.0-37.0); MEAN PLATELET VOLUME 9.3 fl (7.0-11.0); MONO # 0.7 (0.1-0.6); MONO % 6.6 % (1.0-6.0); RBC 4.43 10^6/uL (3.5-6.1); RED CELL DISTRIBUTION WIDTH 13.9 % (11.5-14.5); WHITE BLOOD COUNT 10.5 10^3/ul (4.5-11.0)
[2017-11-04 09:03] LABS: ALBUMIN 3.5 g/dL (3.0-4.8); GFR AFRICAN-AMERICAN > 60; GFR NON-AFRICAN AMERICAN > 60; LIPASE 151 U/L (23-300)
[2017-11-04 09:04] LABS: ALT/SGPT 30 U/L (7-56); AST/SGOT 36 U/L (14-36); BLOOD UREA NITROGEN 18 mg/dL (7-21)
[2017-11-04 09:15] LABS: B-TYPE NATRIURETIC PEPTIDE 43.9 pg/mL (0-450); TROPONIN I < 0.01 ng/mL
[2017-11-04 09:37] LABS: PH,URINE 5.5 (4.7-8.0); URINE APPEARANCE CLEAR (CLEAR); URINE BILIRUBIN NEGATIVE (NEGATIVE); URINE BLOOD NEGATIVE (NEGATIVE); URINE COLOR YELLOW (YELLOW); URINE GLUCOSE (UA) NEGATIVE (NEGATIVE); URINE LEUKOCYTE ESTERASE NEGATIVE Leu/uL (NEGATIVE); URINE PROTEIN TRACE mg/dL (<30 mg/dL); URINE UROBILINOGEN 0.2 E.U./dL (<1 E.U./dL)
[2017-11-04 09:40] LABS: URINE AMORPHOUS SEDIMENT FEW; URINE BACTERIA MANY (NEG); URINE RBC NEGATIVE /hpf (0-2)
[2017-11-04] MEDS ORDERED: Albuterol-Ipratrop 3 mg / 0.5 (3 ml) UD IH PRN (10:49)
--- NOTE | 2017-11-04 10:53 | CP.PCM.HP ---
<Kadie Coleman - Last Filed: 11/04/17 11:28> History of Present Illness - History of Present Illness History of Present Illness: PGY-2 H&P for hospitalist service 42 yo female with PMH of HTN, anxiety presents with chest pain. Patient states that the pain started last night. SHe describes it as achy, pressure like pain, located in the sub sternal, radiating to mid left chest. The pain is 6-7/10; slightly waxing and waning. Patient states that she took asa, yeni seltzer without relief. She also reports mild nausea, no vomiting. She states that for the past few month she has experienced a few episodes of palpitation. She previously had similar pain in 2008, she was evaluated at [facility] and was started on metoprolol. She denies any cardiac cath in the past. Her last echo was in 2008. She saw her customer solutions representative yesterday. Patient states that she is mostly compliant with medications, occasionally forgets to take medication. She reports dyspnea on exertion this morning. no fever, chills, sweats, no lightheadedness/dizziness, no numbness/tingling, no facial changes, no slur speech, no abd pain, no n/v, no focal weakness, no rashes, no gross bleeding, no LOC; no fall,trauma,sick contact, no travel. Patient states that pain resolved after receiving nitroglycerin in ED. PMH: HTN, anxiety PSH: cholecystectomy social history: former smoker, quit 8 mo ago, previously smoked 1/2ppd, denies alcohol use, illicit drug use family history: DM, HTN, sister with thyroid ca and stomach ca allergy: aleeve- rash home med: metorprolol, asa, ablbuterol prn, alprazolam prn Present on Admission - Present on Admission Any Indicators Present on Admission: No Review of Systems - Constitutional Constitutional: absent: Chills, Fever, Headache, Weight Loss - EENT Eyes: absent: Change in Vision Nose/Mouth/Throat: absent: Nasal Congestion, Nasal Discharge, Sore Throat - Cardiovascular Cardiovascular: Chest Pain, Palpitations. absent: Diaphoresis, Dyspnea, Orthopnea, Paroxysmal Nocturnal Dyspnea - Respiratory Respiratory: absent: Cough, Dyspnea, Hemoptysis, Wheezing - Gastrointestinal Gastrointestinal: Constipation. absent: Abdominal Pain, Diarrhea, Nausea, Vomiting - Genitourinary Genitourinary: absent: Difficulty Urinating, Dysuria, Flank Pain, Hematuria - Musculoskeletal Musculoskeletal: absent: Arthralgias, Myalgias, Numbness, Stiffness, Tingling - Integumentary Integumentary: absent: Pruritus, Rash, Skin Ulcer, Sores, Swelling, Wounds - Neurological Neurological: absent: Dizziness, Numbness, Headaches, Syncope, Tingling, Weakness - Hematologic/Lymphatic Hematologic: absent: Easy Bleeding, Easy Bruising Past Patient History - Infectious Disease Hx of Infectious Diseases: None - Tetanus Immunizations Tetanus Immunization: Up to Date - Past Social History Smoking Status: Former Smoker - CARDIAC Hx Cardiac Disorders: Yes Hx Hypertension: Yes Hx Mitral Valve Prolapse: (mitral valve regurgitation) Other/Comment: Hx of low K+ - PULMONARY Hx Asthma: Yes - NEUROLOGICAL Hx Neurological Disorder: Yes Hx Transient Ischemic Attacks (TIA): Yes Other/Comment: hypo kalemia - HEENT Hx HEENT Problems: No - RENAL Hx Chronic Kidney Disease: No - ENDOCRINE/METABOLIC Hx Endocrine Disorders: No - HEMATOLOGICAL/ONCOLOGICAL Hx Blood Disorders: No - INTEGUMENTARY Hx Dermatological Problems: No - MUSCULOSKELETAL/RHEUMATOLOGICAL Hx Musculoskeletal Disorders: No - GASTROINTESTINAL Hx Gastrointestinal Disorders: No - GENITOURINARY/GYNECOLOGICAL Hx Genitourinary Disorders: No - PSYCHIATRIC Hx Psychophysiologic Disorder: Yes Hx Anxiety: Yes Hx Substance Use: No - SURGICAL HISTORY Hx Cholecystectomy: Yes - ANESTHESIA Hx Anesthesia: Yes Hx Anesthesia Reactions: No Hx Malignant Hyperthermia: No Meds Allergies/Adverse Reactions: Allergies Allergy/AdvReac Type Severity Reaction Status Date / Time aleeve Allergy RASH Uncoded 11/04/17 08:28 seafood Allergy ANAPHYLAXIS Uncoded 11/04/17 08:28 Physical Exam - Constitutional Appears: Well, No Acute Distress - Head Exam Head Exam: ATRAUMATIC, NORMOCEPHALIC - Eye Exam Eye Exam: EOMI, Normal appearance - ENT Exam ENT Exam: Mucous Membranes Moist - Respiratory Exam Respiratory Exam: Clear to Auscultation Bilateral, NORMAL BREATHING PATTERN. absent: Decreased Breath Sounds, Rales, Rhonchi, Wheezes, Respiratory Distress - Cardiovascular Exam Cardiovascular Exam: REGULAR RHYTHM, +S1, +S2. absent: Tachycardia, Systolic Murmur - GI/Abdominal Exam GI & Abdominal Exam: Normal Bowel Sounds, Soft. absent: Distended, Firm, Guarding, Tenderness - Extremities Exam Extremities exam: Positive for: normal inspection. Negative for: pedal edema, tenderness - Back Exam Back exam: NORMAL INSPECTION - Neurological Exam Neurological exam: Alert, Oriented x3 - Skin Skin Exam: Dry, Intact, Normal Color, Warm Results - Vital Signs Recent Vital Signs: Last Vital Signs Temp 97.8 F 11/04/17 08:18 Pulse 68 11/04/17 10:39 Resp 18 11/04/17 10:39 BP 122/75 11/04/17 10:39 Pulse Ox 98 11/04/17 10:39 - Labs Result Diagrams: 11/04/17 08:45 11/04/17 08:45 Labs: Laboratory Results - last 24 hr 11/04/17 11/04/17 11/04/17 08:45 08:45 08:45 WBC 10.5 RBC 4.43 Hgb 12.9 Hct 37.6 MCV 84.9 MCH 29.1 MCHC 34.3 RDW 13.9 Plt Count 296 MPV 9.3 Gran % 64.8 Lymph % (Auto) 26.0 [place] % (Auto) 6.6 H Eos % (Auto) 2.0 Baso % (Auto) 0.6 Gran # 6.82 H Lymph # (Auto) 2.7 [place] # (Auto) 0.7 H Eos # (Auto) 0.2 Baso # (Auto) 0.06 Sodium 141 Potassium 4.2 Chloride 108 H Carbon Dioxide 25 Anion Gap 13 BUN 18 Creatinine 0.7 Est GFR ( Amer) > 60 Est GFR (Non-Af Amer) > 60 Random Glucose 91 Calcium 9.0 Magnesium 2.0 Total Bilirubin 0.5 AST 36 ALT 30 Alkaline Phosphatase 49 Lactate Dehydrogenase 535 Total Creatine Kinase 214 Troponin I < 0.01 NT-Pro-B Natriuret Pep 43.9 Total Protein 7.1 Albumin 3.5 Globulin 3.6 Albumin/Globulin Ratio 1.0 L Lipase 151 TSH 3rd Generation 0.77 Urine Color Urine Appearance Urine pH Ur Specific [place] Urine Protein Urine Glucose (UA) Urine Ketones Urine Blood Urine Nitrate Urine Bilirubin Urine Urobilinogen Ur Leukocyte Esterase Urine RBC Urine WBC Ur Epithelial Cells Amorphous Sediment Urine Bacteria Urine Other 11/04/17 09:30 WBC RBC Hgb Hct MCV MCH MCHC RDW Plt Count MPV Gran % Lymph % (Auto) [place] % (Auto) Eos % (Auto) Baso % (Auto) Gran # Lymph # (Auto) [place] # (Auto) Eos # (Auto) Baso # (Auto) Sodium Potassium Chloride Carbon Dioxide Anion Gap BUN Creatinine Est GFR ( Amer) Est GFR (Non-Af Amer) Random Glucose Calcium Magnesium Total Bilirubin AST ALT Alkaline Phosphatase Lactate Dehydrogenase Total Creatine Kinase Troponin I NT-Pro-B Natriuret Pep Total Protein Albumin Globulin Albumin/Globulin Ratio Lipase TSH 3rd Generation Urine Color Yellow Urine Appearance Clear Urine pH 5.5 Ur Specific [place] >= 1.030 Urine Protein Trace H Urine Glucose (UA) Negative Urine Ketones Negative Urine Blood Negative Urine Nitrate Negative Urine Bilirubin Negative Urine Urobilinogen 0.2 Ur Leukocyte Esterase Negative Urine RBC Negative Urine WBC 1 - 3 Ur Epithelial Cells 6 - 8 Amorphous Sediment Few Urine Bacteria Many Urine Other Fiber Assessment & Plan - Assessment and Plan (Free Text) Assessment: 42 yo female with PMH of HTN, anxiety presents with chest pain improved with nitroglycerin in ED. Plan: 1.chest pain - rule out acs, possible muscular skeletal vs anxiety, - received nitro in ED, pain improved - trops negative x1 - tsh, lipase and pro BNP within normal limits - trend trops - lipid panel - restart home meds metoprolol and asa - echo - cardiology consult prophylaxis - GI ppx- protonix - DVT ppx- lovenox <Gin Ross - Last Filed: 11/04/17 17:50> Results - Vital Signs Recent Vital Signs: Last Vital Signs Temp 97.8 F 11/04/17 08:18 Pulse 63 11/04/17 14:00 Resp 18 11/04/17 12:33 BP 134/91 H 11/04/17 13:53 Pulse Ox 98 11/04/17 10:39 - Labs Result Diagrams: 11/04/17 08:45 11/04/17 08:45 Labs: Laboratory Results - last 24 hr 11/04/17 15:20 Troponin I < 0.01 Attending/Attestation - Attestation I have personally seen and examined this patient.: Yes I have fully participated in the care of the patient.: Yes I have reviewed all pertinent clinical information: Yes Notes (Text): 11/04/17 17:48 Medical record note made by the resident after discussion with my direction and input after the patient was personally seen and examined by me. I have reviewed the chart and agree that the record accurately reflects by personal performance of the history, physical exam, data review, and medical decision-making, in the course for the patient. I have also personally directed the plan of care. 42 yrs old female with PMH of HTN is admitted with chest pain, EKG is negative for ischemic changes, will get serial troponin, will monitor patient in telemetry and will get cardiology consult Patient was seen and examined with medical/surgery registered nurse. Agreed with assessment and plan. Management plan was discussed in detail with patient. Education was provided.
[2017-11-04 11:43] LABS: HDL CHOLESTEROL 51 mg/dL (29-60)
[2017-11-04 11:54] LABS: LDL CHOLESTEROL 70 mg/dL (0-129)
--- NOTE | 2017-11-04 12:30 | RAD ---
HISTORY: Chest pain. COMPARISON: 02/24/2017 TECHNIQUE: Chest PA and lateral FINDINGS: LUNGS: No active pulmonary disease. PLEURA: No significant pleural effusion identified. No pneumothorax apparent. CARDIOVASCULAR: Normal. OSSEOUS STRUCTURES: No significant abnormalities. VISUALIZED UPPER ABDOMEN: Normal. OTHER FINDINGS: None. IMPRESSION: No active disease. No significant interval change compared to the prior examination(s).
[2017-11-04 12:50] VITALS: BMI 39.1
--- NOTE | 2017-11-04 14:00 | CARD ---
APPROVED REPORT EKG Measurement Heart [id number] <Conclusion> Normal sinus rhythm Low voltage QRS Borderline ECG
[2017-11-05 00:33] VITALS: RESP 20
--- NOTE | 2017-11-05 01:06 | CON ---
DATE: 11/04/2017 REASON FOR CONSULTATION AND FOLLOWUP: Cardiac evaluation, admitted with chest pain, history of hypertension, obesity. BRIEF CLINICAL HISTORY: This is a 42-year-old obese female with past medical history of hypertension, palpitation for many years, off and on smoker, history of chest pain in 2008 goes back, admitted here and then in 2010 to [facility]. Stress test was negative at that time as per the patient, recently having chest pain for 2 weeks off and on, in the left side of the chest, goes underneath the breast, sometimes associated with exertion also. Denies any diaphoresis, but complains of palpitation, and that is why patient is on metoprolol for a while. PAST MEDICAL HISTORY: Significant for hypertension, palpitation. SOCIAL HISTORY: Off and on smoker. Used to smoke half to a pack a day, quit for 3 to 4 years, then restarted again, now he started 3 to 4 cigarette per day. Denies any history of alcohol abuse. Denies any history of substance abuse. FAMILY HISTORY: Significant for hypertension. No history of coronary artery disease in the family. CURRENT MEDICATIONS: Patient is taking metoprolol succinate, aspirin 81 mg daily, Xanax 2 mg p.r.n., and albuterol inhaler p.r.n. Being followed by Dr. Kb Brown, Corporate General Manager. Last stress test was 5 years ago, possibly at [facility] in 2010 or 2011. REVIEW OF SYSTEMS: As per HPI and negative except for HPI. PHYSICAL EXAMINATION: VITAL SIGNS: Height of the patient, 5 feet 9 inches, weight of the patient 265 pounds, body mass index 39.1 kg/m2. Temperature afebrile, heart rate 67, blood pressure 134/91. HEENT: PERRLA. Extraocular muscles intact. NECK: Supple. No carotid bruit or thyromegaly. CHEST: Clear to auscultation. HEART: S1, S2, regular. ABDOMEN: Soft. EXTREMITIES: Clubbing and cyanosis negative. LABORATORY DATA: EKG shows normal sinus, heart rate of 64, low voltage QRS complex in limbs as well as precordial leads. Blood workup as follows: WBC 10.5, hemoglobin 12.9, hematocrit 37.6, platelet count 296. Chemistry shows sodium 141, potassium 4, chloride 108, carbon dioxide 25, anion gap of 13, BUN 18, creatinine 0.7. Troponin is 0.01. IMPRESSION AND PLAN: Though chest pain appears to be atypical, given the multiple risk factors of coronary artery disease and obesity, I suggested stress test and echocardiogram. Patient was admitted multiple times here at the [facility], but claims that she has never had a stress test recently, but most recently 5 to 6 years ago at [facility]. We will do the stress test and echocardiogram, lipid profile, TSH, hemoglobin A1c; follow up serial CPK, and troponin. Further recommendations will be made depending upon hospital course and the findings of the initial workup. We will follow with you. We will continue beta-angi and aggressively control the blood pressure. Patient states when the blood pressure goes up, she also feels chest pain as well as palpitation. We will discontinue IV fluid. The patient is running high blood pressure. Patient is getting normal saline 100 mL an hour. The reason, not sure why the patient is getting it. We will discontinue it for now. I will give one dose of metoprolol now. Thank you Dr. Ross, for providing us the opportunity in taking care of the patient Donato Underwood. Gin Ortez MD
[2017-11-05 06:23] VITALS: O2SAT 98
[2017-11-05 06:47] LABS: ALBUMIN 3.3 g/dL (3.0-4.8); ALT/SGPT 26 U/L (7-56); AST/SGOT 30 U/L (14-36); BLOOD UREA NITROGEN 16 mg/dL (7-21); GFR AFRICAN-AMERICAN > 60; GFR NON-AFRICAN AMERICAN > 60
[2017-11-05 06:52] LABS: BASO # 0.05 K/mm3 (0.0-2.0); BASO % 0.5 % (0.0-3.0); EOS # 0.4 (0.0-0.7); EOS % 3.8 % (1.5-5.0); GRAN # 6.13 (1.4-6.5); GRAN % 60.6 % (50.0-68.0); HEMOGLOBIN 12.7 g/dL (12.0-16.0); LYMPH # 2.9 (1.2-3.4); MEAN CELL VOLUME 85.7 fl (80.0-105.0); MEAN CORPUSCULAR HEMOGLOBIN 28.3 pg (25.0-35.0); MEAN PLATELET VOLUME 9.8 fl (7.0-11.0); MONO # 0.6 (0.1-0.6); MONO % 6.1 % (1.0-6.0); RBC 4.49 10^6/uL (3.5-6.1); RED CELL DISTRIBUTION WIDTH 14.3 % (11.5-14.5); WHITE BLOOD COUNT 10.1 10^3/ul (4.5-11.0)
[2017-11-05] MEDS ORDERED: Enoxaparin 40 mg Syringe SC SCH (10:00)
[2017-11-05] MEDS ORDERED: Pantoprazole 40 mg EC Tab PO SCH (10:00)
[2017-11-05] MEDS ORDERED: Metoprolol Succinate 50 mg XL Tab PO SCH (10:00)
[2017-11-05 12:15] VITALS: BP 129/83
[2017-11-05 12:19] VITALS: TEMP 97.9
[2017-11-05 15:30] VITALS: PULSE 59
--- NOTE | 2017-11-05 15:59 | CP.PCM.DIS ---
<Milagros Flores - Last Filed: 11/05/17 16:07> Provider - Provider Date of Admission: 11/04/17 10:44 Attending physician: Gin Ross MD Primary care physician: Kb Brown MD Consults: Dr. Ortez Time Spent in preparation of Discharge (in minutes): 45 Hospital Course - Lab Results Lab Results: Most Recent Lab Values WBC 10.1 10^3/ul (4.5-11.0) 11/05/17 06:00 RBC 4.49 10^6/uL (3.5-6.1) 11/05/17 06:00 Hgb 12.7 g/dL (12.0-16.0) 11/05/17 06:00 Hct 38.5 % (36.0-48.0) 11/05/17 06:00 MCV 85.7 fl (80.0-105.0) 11/05/17 06:00 MCH 28.3 pg (25.0-35.0) 11/05/17 06:00 MCHC 33.0 g/dl (31.0-37.0) 11/05/17 06:00 RDW 14.3 % (11.5-14.5) 11/05/17 06:00 Plt Count 306 10^3/uL (120.0-450.0) 11/05/17 06:00 MPV 9.8 fl (7.0-11.0) 11/05/17 06:00 Gran % 60.6 % (50.0-68.0) 11/05/17 06:00 Lymph % (Auto) 29.0 % (22.0-35.0) 11/05/17 06:00 Andrew % (Auto) 6.1 % (1.0-6.0) H 11/05/17 06:00 Eos % (Auto) 3.8 % (1.5-5.0) 11/05/17 06:00 Baso % (Auto) 0.5 % (0.0-3.0) 11/05/17 06:00 Gran # 6.13 (1.4-6.5) 11/05/17 06:00 Lymph # (Auto) 2.9 (1.2-3.4) 11/05/17 06:00 Andrew # (Auto) 0.6 (0.1-0.6) 11/05/17 06:00 Eos # (Auto) 0.4 (0.0-0.7) 11/05/17 06:00 Baso # (Auto) 0.05 K/mm3 (0.0-2.0) 11/05/17 06:00 Sodium 141 mmol/L (132-148) 11/05/17 06:00 Potassium 4.1 mmol/L (3.6-5.0) 11/05/17 06:00 Chloride 108 mmol/L (98-107) H 11/05/17 06:00 Carbon Dioxide 26 mmol/L (21-33) 11/05/17 06:00 Anion Gap 11 (10-20) 11/05/17 06:00 BUN 16 mg/dL (7-21) 11/05/17 06:00 Creatinine 0.7 mg/dl (0.7-1.2) 11/05/17 06:00 Est GFR ( Amer) > 60 11/05/17 06:00 Est GFR (Non-Af Amer) > 60 11/05/17 06:00 Random Glucose 103 mg/dL (70-110) 11/05/17 06:00 Calcium 9.0 mg/dL (8.4-10.5) 11/05/17 06:00 Magnesium 2.0 mg/dL (1.7-2.2) 11/04/17 08:45 Total Bilirubin 0.4 mg/dL (0.2-1.3) 11/05/17 06:00 AST 30 U/L (14-36) 11/05/17 06:00 ALT 26 U/L (7-56) 11/05/17 06:00 Alkaline Phosphatase 50 U/L (38-126) 11/05/17 06:00 Lactate Dehydrogenase 535 U/L (333-699) 11/04/17 08:45 Total Creatine Kinase 214 U/L (35-230) 11/04/17 08:45 Troponin I < 0.01 ng/mL 11/04/17 21:25 NT-Pro-B Natriuret Pep 43.9 pg/mL (0-450) 11/04/17 08:45 Total Protein 6.8 g/dL (5.8-8.3) 11/05/17 06:00 Albumin 3.3 g/dL (3.0-4.8) 11/05/17 06:00 Globulin 3.5 gm/dL 11/05/17 06:00 Albumin/Globulin Ratio 1.0 (1.1-1.8) L 11/05/17 06:00 Triglycerides 133 mg/dL (35-160) 11/04/17 08:30 Cholesterol 155 mg/dL (130-200) 11/04/17 08:30 LDL Cholesterol Direct 70 mg/dL (0-129) 11/04/17 08:30 HDL Cholesterol 51 mg/dL (29-60) 11/04/17 08:30 Lipase 151 U/L (23-300) 11/04/17 08:45 TSH 3rd Generation 0.77 mIU/mL (0.46-4.68) 11/04/17 08:45 Beta HCG, Quant < 2.39 mIU/mL (0-6.15) 11/04/17 08:45 Urine Color Yellow (YELLOW) 11/04/17 09:30 Urine Appearance Clear (CLEAR) 11/04/17 09:30 Urine pH 5.5 (4.7-8.0) 11/04/17 09:30 Ur Specific [place] >= 1.030 (1.005-1.035) 11/04/17 09:30 Urine Protein Trace mg/dL (<30 mg/dL) H 11/04/17 09:30 Urine Glucose (UA) Negative mg/dL (NEGATIVE) 11/04/17 09:30 Urine Ketones Negative mg/dL (NEGATIVE) 11/04/17 09:30 Urine Blood Negative (NEGATIVE) 11/04/17 09:30 Urine Nitrate Negative (NEGATIVE) 11/04/17 09:30 Urine Bilirubin Negative (NEGATIVE) 11/04/17 09:30 Urine Urobilinogen 0.2 E.U./dL (<1 E.U./dL) 11/04/17 09:30 Ur Leukocyte Esterase Negative Asaf/uL (NEGATIVE) 11/04/17 09:30 Urine RBC Negative /hpf (0-2) 11/04/17 09:30 Urine WBC 1 - 3 /hpf (0-6) 11/04/17 09:30 Ur Epithelial Cells 6 - 8 /hpf (0-5) 11/04/17 09:30 Amorphous Sediment Few 11/04/17 09:30 Urine Bacteria Many (NEG) 11/04/17 09:30 Urine Other Fiber 11/04/17 09:30 - Hospital Course Hospital Course: 42 year old obese female with a past medical history of hypertension, palpitations, smoking, who presented with 2 weeks of atypical chest pain. The patient was given aspirin and nitroglycerin in the ED that improved her symptoms. Initial EKG in the ED was negative for ACS as were troponins x 3. The patient was observed closely on telemetry overnight. Cardiology was consulted and recommended echocardiogram, exercise and nuclear stress stress which were unremarkable. The patient was discharged with the below written instructions and recommendations. - Date & Time of H&P Date of H&P: 11/05/17 Time of H&P: 16:14 Discharge Exam - Head Exam Head Exam: ATRAUMATIC, NORMOCEPHALIC - Eye Exam Eye Exam: EOMI, Normal appearance - ENT Exam ENT Exam: Mucous Membranes Moist, Normal Oropharynx - Respiratory Exam Respiratory Exam: Clear to PA & Lateral, NORMAL BREATHING PATTERN - Cardiovascular Exam Cardiovascular Exam: RRR, +S1, +S2 - GI/Abdominal Exam GI & Abdominal Exam: Normal Bowel Sounds. absent: Guarding - Extremities Exam Extremities exam: normal inspection - Neurological Exam Neurological exam: Alert, CN II-XII Intact, Oriented x3 - Psychiatric Exam Psychiatric exam: Normal Affect, Normal Mood - Skin Skin Exam: Dry, Intact, Normal Color, Warm Discharge Plan - Follow Up Plan Condition: STABLE Disposition: HOME/ ROUTINE Instructions: Echocardiogram, Adult, Cardiac Stress Test, High Blood Pressure ( DC), Chest Pain (DC), Chest Pain (GEN) Additional Instructions: 1. Follow up with Dr. Brown, Primary Care Doctor, within 1 week. 2. Follow up with Dr. Torres or Dr. Ortez within [address] Cricket Torres / Dr. Ortez Architectural Drafting Instructor [address] [place] [id number] Referrals: Gin Ortez MD [Staff Provider] - Kb Brown MD [Primary Care Provider] - Gin Torres MD [Staff Provider] - <Gin Ross - Last Filed: 11/06/17 07:42> Provider - Provider Date of Admission: 11/04/17 10:44 Attending physician: Gin Ross MD Primary care physician: Kb Brown MD Hospital Course - Lab Results Lab Results: Most Recent Lab Values WBC 10.1 10^3/ul (4.5-11.0) 11/05/17 06:00 RBC 4.49 10^6/uL (3.5-6.1) 11/05/17 06:00 Hgb 12.7 g/dL (12.0-16.0) 11/05/17 06:00 Hct 38.5 % (36.0-48.0) 11/05/17 06:00 MCV 85.7 fl (80.0-105.0) 11/05/17 06:00 MCH 28.3 pg (25.0-35.0) 11/05/17 06:00 MCHC 33.0 g/dl (31.0-37.0) 11/05/17 06:00 RDW 14.3 % (11.5-14.5) 11/05/17 06:00 Plt Count 306 10^3/uL (120.0-450.0) 11/05/17 06:00 MPV 9.8 fl (7.0-11.0) 11/05/17 06:00 Gran % 60.6 % (50.0-68.0) 11/05/17 06:00 Lymph % (Auto) 29.0 % (22.0-35.0) 11/05/17 06:00 Andrew % (Auto) 6.1 % (1.0-6.0) H 11/05/17 06:00 Eos % (Auto) 3.8 % (1.5-5.0) 11/05/17 06:00 Baso % (Auto) 0.5 % (0.0-3.0) 11/05/17 06:00 Gran # 6.13 (1.4-6.5) 11/05/17 06:00 Lymph # (Auto) 2.9 (1.2-3.4) 11/05/17 06:00 Andrew # (Auto) 0.6 (0.1-0.6) 11/05/17 06:00 Eos # (Auto) 0.4 (0.0-0.7) 11/05/17 06:00 Baso # (Auto) 0.05 K/mm3 (0.0-2.0) 11/05/17 06:00 Sodium 141 mmol/L (132-148) 11/05/17 06:00 Potassium 4.1 mmol/L (3.6-5.0) 11/05/17 06:00 Chloride 108 mmol/L (98-107) H 11/05/17 06:00 Carbon Dioxide 26 mmol/L (21-33) 11/05/17 06:00 Anion Gap 11 (10-20) 11/05/17 06:00 BUN 16 mg/dL (7-21) 11/05/17 06:00 Creatinine 0.7 mg/dl (0.7-1.2) 11/05/17 06:00 Est GFR ( Amer) > 60 11/05/17 06:00 Est GFR (Non-Af Amer) > 60 11/05/17 06:00 Random Glucose 103 mg/dL (70-110) 11/05/17 06:00 Calcium 9.0 mg/dL (8.4-10.5) 11/05/17 06:00 Magnesium 2.0 mg/dL (1.7-2.2) 11/04/17 08:45 Total Bilirubin 0.4 mg/dL (0.2-1.3) 11/05/17 06:00 AST 30 U/L (14-36) 11/05/17 06:00 ALT 26 U/L (7-56) 11/05/17 06:00 Alkaline Phosphatase 50 U/L (38-126) 11/05/17 06:00 Lactate Dehydrogenase 535 U/L (333-699) 11/04/17 08:45 Total Creatine Kinase 214 U/L (35-230) 11/04/17 08:45 Troponin I < 0.01 ng/mL 11/04/17 21:25 NT-Pro-B Natriuret Pep 43.9 pg/mL (0-450) 11/04/17 08:45 Total Protein 6.8 g/dL (5.8-8.3) 11/05/17 06:00 Albumin 3.3 g/dL (3.0-4.8) 11/05/17 06:00 Globulin 3.5 gm/dL 11/05/17 06:00 Albumin/Globulin Ratio 1.0 (1.1-1.8) L 11/05/17 06:00 Triglycerides 133 mg/dL (35-160) 11/04/17 08:30 Cholesterol 155 mg/dL (130-200) 11/04/17 08:30 LDL Cholesterol Direct 70 mg/dL (0-129) 11/04/17 08:30 HDL Cholesterol 51 mg/dL (29-60) 11/04/17 08:30 Lipase 151 U/L (23-300) 11/04/17 08:45 TSH 3rd Generation 0.77 mIU/mL (0.46-4.68) 11/04/17 08:45 Beta HCG, Quant < 2.39 mIU/mL (0-6.15) 11/04/17 08:45 Urine Color Yellow (YELLOW) 11/04/17 09:30 Urine Appearance Clear (CLEAR) 11/04/17 09:30 Urine pH 5.5 (4.7-8.0) 11/04/17 09:30 Ur Specific [place] >= 1.030 (1.005-1.035) 11/04/17 09:30 Urine Protein Trace mg/dL (<30 mg/dL) H 11/04/17 09:30 Urine Glucose (UA) Negative mg/dL (NEGATIVE) 11/04/17 09:30 Urine Ketones Negative mg/dL (NEGATIVE) 11/04/17 09:30 Urine Blood Negative (NEGATIVE) 11/04/17 09:30 Urine Nitrate Negative (NEGATIVE) 11/04/17 09:30 Urine Bilirubin Negative (NEGATIVE) 11/04/17 09:30 Urine Urobilinogen 0.2 E.U./dL (<1 E.U./dL) 11/04/17 09:30 Ur Leukocyte Esterase Negative Asaf/uL (NEGATIVE) 11/04/17 09:30 Urine RBC Negative /hpf (0-2) 11/04/17 09:30 Urine WBC 1 - 3 /hpf (0-6) 11/04/17 09:30 Ur Epithelial Cells 6 - 8 /hpf (0-5) 11/04/17 09:30 Amorphous Sediment Few 11/04/17 09:30 Urine Bacteria Many (NEG) 11/04/17 09:30 Urine Other Fiber 11/04/17 09:30 Attending/Attestation - Attestation I have personally seen and examined this patient.: Yes I have fully participated in the care of the patient.: Yes I have reviewed all pertinent clinical information, including history, physical exam and plan: Yes Notes (Text): 11/06/17 07:41 Medical record note made by the resident after discussion with my direction and input after the patient was personally seen and examined by me. I have reviewed the chart and agree that the record accurately reflects by personal performance of the history, physical exam, data review, and medical decision-making, in the course for the patient. I have also personally directed the plan of care. 42 yrs old female with PMH of HTN was admitted with chest pain, EKG is negative for ischemic changes, serial troponin were normal.Patient underwent nuclear stress test which is negative for acute ischemia.Patient was evaluated by cardiology during her stay in the hospital.She will be discharged home and will follow up with PCP Patient was seen and examined with electromedical service engineer. Agreed with assessment and plan. Management plan was discussed in detail with patient. Education was provided.
--- NOTE | 2017-11-05 18:06 | CARD ---
APPROVED REPORT EXAM: Two-dimensional and M-mode echocardiogram with Doppler and color Doppler. INDICATION Chest Pain 2D DIMENSIONS Left Atrium (2D)4.5 (1.6-4.0cm)IVSd0.8 (0.7-1.1cm) LVDd4.2 (3.9-5.9cm)PWd1.3 (0.7-1.1cm) LVDs3.0 (2.5-4.0cm)FS (%) 28.9 % LVEF (%)56.0 (>50%) M-Mode DIMENSIONS Aortic Root3.00 (2.2-3.7cm)Aortic Cusp Exc.1.70 (1.5-2.0cm) Aortic Valve AoV Peak Dsnvmivd887.0cm/Sophie Peak GR.7mmHg Mitral Valve MV E Lcxutnjr09.0cm/sMV A Bzsaolsi82.4cm/sE/A ratio1.0 TDI Lateral E' Peak V6.34cm/sMedial E' Peak V8.09cm/sE/Lateral E'12.5 E/Medial E'9.8 Pulmonary Valve PV Peak Wxstgprm59.7cm/sPV Peak Grad.3mmHg Tricuspid Valve TR Peak Sikngpgq518fx/sRAP WEKQSLAL49biXsRS Peak Gr.22mmHg [id number] LEFT VENTRICLE The left ventricle is normal size. There is normal left ventricular wall thickness. The left ventricular function is normal.EF-55-60% There is normal LV segmental wall motion. The left ventricular diastolic function is normal. No left ventricle thrombus noted on this study. There is no ventricular septal defect visualized. There is no left ventricular aneurysm. There is no mass noted in the left ventricle. RIGHT VENTRICLE The right ventricle is normal size. There is normal right ventricular wall thickness. The right ventricular systolic function is normal. ATRIA The left atrium is mildly dilated. The right atrium size is normal. The interatrial septum is intact with no evidence for an atrial septal defect. AORTIC VALVE The aortic valve is thickened but opens well. No aortic regurgitation is present. There is no aortic valvular stenosis. There is no aortic valvular vegetation. MITRAL VALVE The mitral valve is thickened but opens well. Mitral regurgitation is mild There is no mitral valve stenosis. There is no evidence of mitral valve prolapse. TRICUSPID VALVE The tricuspid valve leaflets are thickened , but open well. There is trace tricuspid regurgitation.RVSP-32 mmof hg There is no tricuspid valve stenosis. There is no tricuspid valve prolapse or vegetation. PULMONIC VALVE The pulmonary valve is normal in structure. There is no pulmonic valvular regurgitation. There is no pulmonic valvular stenosis. GREAT VESSELS The aortic root is normal in size. The ascending aorta is normal in size. The pulmonary artery is normal. The IVC is normal in size and collapses >50% with inspiration. PERICARDIAL EFFUSION There is no pleural effusion. There is no pericardial effusion. <Conclusion> The left ventricle is normal size. There is normal left ventricular wall thickness. The left ventricular function is normal.EF-55-60% Mitral regurgitation is mild There is trace tricuspid regurgitation.RVSP-32 mmof hg There is no pericardial effusion.
--- NOTE | 2017-11-05 18:16 | PN ---
DATE: 11/05/2017 REASON FOR CONSULTATION: Followup cardiac evaluation, admitted with chest pain, history of hypertension and obesity. SUBJECTIVE: Patient denies any chest pain, shortness of breath, or any palpitations. PHYSICAL EXAMINATION GENERAL: Not in apparent distress. VITAL SIGNS: Temperature afebrile, heart rate 70, blood pressure 129/83. HEENT: PERRLA. Extraocular muscles intact. NECK: Supple. No carotid bruits or thyromegaly. CHEST: Clear to auscultation. HEART: S1 and S2, regular. ABDOMEN: Soft. EXTREMITIES: Clubbing and cyanosis negative. LABORATORY DATA: Blood workup as follows; WBC 10.8, hemoglobin 12.7, hematocrit 38.5, platelet count 306. Chemistry shows sodium 141, potassium 4.3, chloride 108, carbon dioxide 26, anion gap of 11, BUN 16, creatinine 0.6. Troponin 0.01 times negative. Total protein 6.8, albumin 3.3, albumin globulin ratio 1. TSH 0.77. Triglycerides 133, cholesterol 155, LDL 70, HDL 51. IMPRESSION: Chest pain, so far no evidence of acute myocardial infarction, multiple risk factors for coronary artery disease. The patient is scheduled for a stress test. We will keep n.p.o. Further recommendation after this stress test. We will follow with you. Thank you, Dr. Gin Ross, for providing us the opportunity in taking care of the patient, Donato Underwood. Discussed with the patient and the patient agreed with procedure for a stress test this morning. Gin Ortez MD
--- NOTE | 2017-11-05 19:29 | CARD ---
APPROVED REPORT Protocol: LIANNE Attending Physician: Dr. Gin Torres Referring Physician: Dr. Gin Ross Test Indications: Chest Pain Height:5 ft 9 in Weight:265lbs Medications: duoneb, xanax, aspirin, lovenox, toprol, protonix Medical History: 42 year old female with a h/o htn, asthma, TIA, cholecystectomy and anxiety Target HR: 180 bpm Resting ECG: RSR. Resting Heart Rate: 83 bpm Resting Blood Pressure: 122/70mmHg Submaximum (85%): 153 bpm POST EXERCISE Reason for Termination: Fatigue Target HR: No Max HR: 150 bpm 85% of Maximum Predicted HR: 180 bpm Exercise duration: 09:02 min:sec, 4 Stage Exercise capacity: 10.4METs Max Blood Pressure: 146/92mmHg Blood Pressure response to exercise: normal resting BP - appropriate response Heart Rate response to exercise: appropriate Chest Pain: No, none Angina index: 0 Arrhythmia: No, none ST Change: No, none Deviation: 0 mm TEST SUMMARY [id number]/.0. [id number]/70.0. EXERCISESTAGE 103:[id number]/82.0. EXERCISESTAGE 203:[id number]/88.0. EXERCISESTAGE 303:[id number]/92.0. EXERCISESTAGE 400:[id number]/92.0. [id number]/92.1. INTERPRETATION Stress EKG Conclusion: MYOVIEW NUCLEAR STRESS TEST STOPPED AFT4R 9 MINUTES AND 2 SECONDS OF LIANNE PROTOCOL DUE TO FATIGUE PAETIENT ACHIEVED 83% OF PREDICTED HEART RATE. NO CHEST PAIN. NO ST-T CHANGES. NUCLEAR SCAN REPORT PENDING. Signed by Gin Torres Electronically Approved: 11/05/2017 10:25:44 EXAM: Myocardial Perfusion REST/STRESS Stress Test Type: Exercise Treadmill Imaging Protocol Rest Spect myocardial perfusion imaging was performed in supine position 45 minutes following the injection of 10.3 mCi of Tc-99 Myoview. At peak stress, the patient was injected intravenously with 30.7mCi of Tc-99 tetrofosmin after an exercise time of 9 minutes and 02 seconds. Gated Stress Spect was performed 70 minutes after intravenous Tc-99 Myoview injection. The images were gated to evaluate regional wall motion and calculate ventricular ejection fraction.Images were reconstructed using backfilter projection method in short horizontal and verticle long axis. Spect slices were generated. LV Perfusion The quality of the study is good. The left ventricle is within normal limits in size with thickened myocardium. The right ventricle is unremarkable. The lung uptake is normal. The distribution of tracer reveals mildly to moderately decreased perfusion involving mid to distal anteroseptal wall on the stress study. The remainder of the LV myocardium is unremarkable. The rest myocardial perfusion study shows no significant change. Wall Motion Wall motion study shows good contractility of the left ventricle. LVEF = 68%. Conclusion 1. Essentially normal SPECT myocardial perfusion study. 2. Fixed, anteroseptal defect is most likely due to breast attenuation. 3. Normal gated wall motion of the left ventricle.
== END 2017-11-05 18:23 | disposition home or self-care (01) ==
LOC: ED 08:02 → ERH 10:44 → 2RNO 12:14
PROVIDERS: ADMIT Internal Medicine; ATTEND Internal Medicine
DX: R07.89 Other chest pain (principal); I10 Essential (primary) hypertension; I34.0 Nonrheumatic mitral (valve) insufficiency; J45.909 Unspecified asthma, uncomplicated; E66.9 Obesity, unspecified; Z86.73 Personal history of transient ischemic attack (TIA), and cerebral infarction without residual deficits; Z90.49 Acquired absence of other specified parts of digestive tract
CPT/HCPCS: 36415; 71046; 78452; 80053; 80061; 81001; 82550; 83615; 83690; 83735; 83880; 84443; 84484; 84702; 85025; 93005; 93017; 93306; 99285; A9502; G0378; J7040

== ENCOUNTER 2018-01-24 23:36 | Emergency (ER) | payer MEDICAID, OTHER ==
[2018-01-24 23:47] VITALS: BMI 38.4
[2018-01-24 23:52] VITALS: BP 129/91; PULSE 79; RESP 16; TEMP 97.7
--- NOTE | 2018-01-24 23:58 | ED PDOC ---
Arrival/HPI - General Chief Complaint: Chest Pain Time Seen by Provider: 01/24/18 23:38 Historian: Patient - History of Present Illness Narrative History of Present Illness (Text): 01/24/18 23:58 42 year old female, with no significant past medical history, who presents to the emergency department complaining of left sided chest pain that radiates to the left arm since yesterday. Patient notes pain as a sharp, pinching feeling. Patient states she took aspirin for the pain with minimal relief. Patient denies any fever, chills, shortness of breath, nausea, vomiting, diarrhea, neck pain, headache, dizziness, or any other complaints. noted recent neg stress. 01/25/18 02:58 Time/Duration: Other (2 days) Symptom Course: Worsening Activities at Onset: Light Context: Home Past Medical History - Provider Review Nursing Documentation Reviewed: Yes - Past History Past History: Non-Contributing - Infectious Disease Hx of Infectious Diseases: None - Tetanus Immunization Tetanus Immunization: Up to Date - Past Medical History Past Medical History: No Previous - Cardiac Hx Hypertension: Yes - Pulmonary Hx Respiratory Disorders: Yes Hx Asthma: Yes Hx Bronchitis: Yes Hx Chronic Obstructive Pulmonary Disease (COPD): No Hx Emphysema: No Hx Pneumonia: No Hx Respiratory Aspiration: No Hx Respiratory Tract Infection: Yes Hx Sleep Apnea: No Hx Tuberculosis: No - Neurological Hx Neurological Disorder: No Hx Alzheimer's Disease: No HX Cerebrovascular Accident: No Hx Dementia: No Hx Dizziness: No Hx Meningitis: No Hx Migraine: No Hx Parkinson's Disease: No Hx Seizures: No Hx Transient Ischemic Attacks (TIA): Yes - HEENT Hx HEENT Disorder: No Hx Blind: No Hx Cataracts: No Hx Deafness: No Hx Difficulty Chewing: No Hx Epistaxis: No Hx Glaucoma: No Hx Macular Degeneration: No - Renal Hx Renal Disorder: No Hx Dialysis: No Hx Kidney Stones: No Hx Neurogenic Bladder: No Hx Pyelonephritis: No Hx Renal Cancer: No Hx Renal Failure: No - Endocrine/Metabolic Hx Endocrine Disorders: No Hx Adrenal Cancer: No Hx Diabetes Insipidus: No Hx Diabetes Mellitus Type 1: No Hx Diabetes Mellitus Type 2: No Hx Hyperthyroidism: No Hx Hypothyroidism: No Hx Systemic Lupus Erythematosus: No - Hematological/Oncological Hx Blood Disorders: No Hx AIDS: No Hx Anemia: No Hx Cancer: No Hx Chemotherapy: No Hx Cirrhosis: No Hx Hemophilia: No Hx Hepatitis A: No Hx Hepatitis B: No Hx Hepatitis C: No Hx Metastasis: No Hx Shingles: No Hx Sickle Cell Disease: No Hx Unexplained Bleeding: No - Integumentary Hx Dermatological Disorder: No Hx Basal Cell Carcinoma: No Hx Eczema: No Hx Melanoma: No Hx Psoriasis: No Hx Squamous Cell Carcinoma: No - Musculoskeletal/Rheumatological Hx Musculoskeletal Disorders: No Hx Arthritis: No Hx Back Pain: No Hx Degenerative Joint Disease: No Hx Falls: No Hx Fractures: No Hx Gout: No Hx Herniated Disk: No Hx Myasthenia Gravis: No Hx Osteoarthritis: No Hx Osteomyelitis: No Hx Osteoporosis: No Hx Rhabdomyolysis: No Hx Spinal Stenosis: No Hx Unsteady Gait: No - Gastrointestinal Hx Gastrointestinal Disorders: No Hx Colostomy: No Hx Crohn's Disease: No Hx Diverticulitis: No Hx Gall Bladder Disease: No Hx Gastroesophageal Reflux: No Hx Gastrointestinal Ulcer: No Hx Ileostomy: No Hx Liver Failure: No Hx Pancreatitis: No HX Swallowing Problems: No - Genitourinary/Gynecological Hx Genitourinary Disorders: No Hx Incontinence: No Hx Prostate Problems: No Hx Sexually Transmitted Diseases: No Hx Urinary Tract Infection: No - Psychiatric Hx Psychophysiologic Disorder: No Hx Anxiety: Yes Hx Bipolar Disorder: No Hx Depression: No Hx Emotional Abuse: No Hx Hallucinations: No Hx Panic Disorder: No Hx Post Traumatic Stress Disorder: No Hx Psychosis: No Hx Physical Abuse: No Hx Schizophrenia: No Hx Sexual Abuse: No Hx Substance Use: No - Surgical History Hx Amputation: No Hx Appendectomy: No Hx Cardiac Catheterization: No Hx Cholecystectomy: Yes Hx Coronary Stent: No Hx Gastric Bypass Surgery: No Hx Hysterectomy: No Hx Joint Replacement: No Hx Kidney Transplant: No Hx Liver Transplant: No Hx Mastectomy: No Hx Musculoskeletal Surgery: No Hx Open Heart Surgery: No Hx Orthopedic Surgery: No Hx Splenectomy: No Hx Valve Replacement: No - Anesthesia Hx Anesthesia: Yes Hx Anesthesia Reactions: No Hx Malignant Hyperthermia: No - Suicidal Assessment Feels Threatened In Home Enviroment: No Family/Social History - Physician Review Nursing Documentation Reviewed: Yes Family/Social History: Unknown Family HX Smoking Status: Former Smoker Hx Alcohol Use: No Hx Substance Use: No Hx Substance Use Treatment: No Allergies/Home Meds Allergies/Adverse Reactions: Allergies naproxen [From Aleve] Allergy (Verified 01/24/18 23:44) RASH shellfish derived Allergy (Verified 01/24/18 23:44) ANAPHYLAXIS Home Medications: Home Meds Medication Instructions Recorded Confirmed Metoprolol Succinate 50 mg PO DAILY 09/24/14 01/24/18 Alprazolam 2 mg PO DAILY PRN 04/03/15 01/24/18 Albuterol HFA [Ventolin HFA 90 1 puff IH QID PRN 11/04/17 01/24/18 mcg/actuation (8 g)] Aspirin [Aspirin Chewable] 81 mg PO DAILY 11/04/17 01/24/18 Review of Systems - Physician Review All systems were reviewed & negative as marked: Yes - Review of Systems Constitutional: Normal Eyes: Normal ENT: Normal Respiratory: Normal. absent: SOB, Cough Cardiovascular: Chest Pain (left sided chest pain radiating to left arm and back ) Gastrointestinal: Normal. absent: Abdominal Pain Genitourinary Female: Normal. absent: Dysuria, Frequency, Hematuria Musculoskeletal: Back Pain. absent: Neck Pain Skin: Normal. absent: Rash Neurological: Normal. absent: Headache, Dizziness Endocrine: Normal Hemo/Lymphatic: Normal Psychiatric: Normal Physical Exam Vital Signs Reviewed: Yes Vital Signs Temp Pulse Resp BP Pulse Ox 01/24/18 23:50 97.7 F 79 16 129/91 H 100 Temperature: Afebrile Blood Pressure: Normal Pulse: Regular Respiratory Rate: Normal Appearance: Positive for: Well-Appearing, Non-Toxic, Comfortable Pain Distress: None Mental Status: Positive for: Alert and Oriented X 3 - Systems Exam Head: Present: Atraumatic, Normocephalic Pupils: Present: PERRL Extroacular Muscles: Present: EOMI Conjunctiva: Present: Normal Mouth: Present: Moist Mucous Membranes Neck: Present: Normal Range of Motion. No: Meningeal Signs, MIDLINE TENDERNESS Respiratory/Chest: Present: Clear to Auscultation, Good Air Exchange. No: Respiratory Distress, Accessory Muscle Use Cardiovascular: Present: Regular Rate and Rhythm, Normal S1, S2, Other (PERC negative). No: Murmurs Abdomen: No: Tenderness, Distention, Peritoneal Signs Back: Present: Normal Inspection. No: CVA Tenderness, Midline Tenderness, Paraspinal Tenderness Upper Extremity: Present: Normal Inspection. No: Cyanosis, Edema Lower Extremity: Present: Normal Inspection. No: Edema, CALF TENDERNESS Neurological: Present: GCS=15, CN II-XII Intact, Speech Normal Skin: Present: Warm, Dry, Normal Color. No: Rashes Psychiatric: Present: Alert, Oriented x 3, Normal Insight, Normal Concentration Medical Decision Making ED Course and Treatment: 01/25/18 00:06 Impression: 42 year old female presents to the emergency department complaining of left sided chest pain that radiates to left arm and back. Plan: -- EKG -- Labs -- Chest X-ray -- HCG, Qualitative Urine Stat -- Urinalysis -- Reassess and disposition Progress Notes: EKG reviewed, shows NSR at [address] wave changes. Patient is PERC negative. 01/25/18 01:22 CXR reviewed by me, Dr. Rivers, shows negative results. 01/25/18 02:59 heart score low, recent neg stress refuses observation asking for dc. also specifically requests medication "for gas" abd soft no ttp. - Lab Interpretations Lab Results: 01/25/18 00:09 01/25/18 00:09 Lab Results 01/25/18 00:09: Sodium 141, Potassium 3.6, Chloride 103, Carbon Dioxide 27, Anion Gap 15, BUN 16, Creatinine 0.8, Est GFR ( Amer) > 60, Est GFR (Non- Af Amer) > 60, Random Glucose 100, Calcium 9.0, Magnesium 1.9, Total Bilirubin 0.6, AST 40 H D, ALT 32, Alkaline Phosphatase 57, Lactate Dehydrogenase 499, Total Creatine Kinase 289 H, CK-MB (CK-2) 1.5, CK-MB (CK-2) % Cancelled, Troponin I < 0.01, Total Protein 7.2, Albumin 3.7, Globulin 3.5, Albumin/ Globulin Ratio 1.1 01/25/18 00:09: PT 10.9, INR 0.96, APTT 27.2 01/25/18 00:09: WBC 10.5, RBC 4.41, Hgb 12.6, Hct 36.9, MCV 83.7, MCH 28.6, MCHC 34.1, RDW 13.7, Plt Count 291, MPV 9.8, Gran % 57.0, Lymph % (Auto) 32.5, [place] % (Auto) 5.3, Eos % (Auto) 4.7, Baso % (Auto) 0.5, Gran # 5.96, Lymph # ( Auto) 3.4, [place] # (Auto) 0.6, Eos # (Auto) 0.5, Baso # (Auto) 0.05 01/24/18 23:58: Urine Color Yellow, Urine Appearance Clear, Urine pH 5.5, Ur Specific [place] >= 1.030, Urine Protein Trace H, Urine Glucose (UA) Negative, Urine Ketones Trace H, Urine Blood Negative, Urine Nitrate Negative, Urine Bilirubin Negative, Urine Urobilinogen 1.0 H, Ur Leukocyte Esterase Negative, Urine RBC 0 - 2, Urine WBC 1 - 3, Ur Epithelial Cells 4 - 5, Urine Bacteria Mod , Urine Other Mucus, Urine HCG, Qual Negative - RAD Interpretation Radiology Orders: 01/24/18 23:58 CHEST PORTABLE [RAD] Stat - Medication Orders Current Medication Orders: Discontinued Medications Pantoprazole Sodium (Protonix Inj) 40 mg IVP STAT STA Stop: 01/25/18 01:48 Last Admin: 01/25/18 02:13 Dose: 40 mg IVP Administration Document 01/25/18 02:13 SS (Rec: 01/25/18 02:13 SS [id number]) Charges for Administration # of IVP Administrations 1 - Scribe Statement The provider has reviewed the documentation as recorded by the Scribe Quin Cordero All medical record entries made by the Scribe were at my direction and personally dictated by me. I have reviewed the chart and agree that the record accurately reflects my personal performance of the history, physical exam, medical decision making, and the department course for this patient. I have also personally directed, reviewed, and agree with the discharge instructions and disposition. Disposition/Present on Arrival - Present on Arrival Any Indicators Present on Arrival: No History of DVT/PE: No History of Uncontrolled Diabetes: No Urinary Catheter: No History of Decub. Ulcer: No History Surgical Site Infection Following: None - Disposition Have Diagnosis and Disposition been Completed?: Yes Diagnosis: Chest pain Disposition: HOME/ ROUTINE Disposition Time: 02:00 Patient Problems: Current Active Problems Problem Status Onset Chest pain Acute Condition: STABLE Discharge Instructions (ExitCare): Chest Pain, Chest Pain (ED) Additional Instructions: return to emergency room with worsening symptoms or concerns. please follow up with your doctor/clinic. you are decling observation in the hosptial Prescriptions: Famotidine [Pepcid] 20 mg PO DAILY #20 tab Referrals: Gin Torres MD [Staff Provider] - Follow up with primary Forms: [employer] (Kiswahili)
[2018-01-25 00:57] LABS: BASO # 0.05 K/mm3 (0.0-2.0); BASO % 0.5 % (0.0-3.0); EOS # 0.5 (0.0-0.7); EOS % 4.7 % (1.5-5.0); GRAN # 5.96 (1.4-6.5); HEMOGLOBIN 12.6 g/dL (12.0-16.0); LYMPH # 3.4 (1.2-3.4); LYMPH % 32.5 % (22.0-35.0); MEAN CELL VOLUME 83.7 fl (80.0-105.0); MEAN CORPUSCULAR HEMOGLOBIN 28.6 pg (25.0-35.0); MEAN CORPUSCULAR HGB CONC 34.1 g/dl (31.0-37.0); MEAN PLATELET VOLUME 9.8 fl (7.0-11.0); MONO # 0.6 (0.1-0.6); MONO % 5.3 % (1.0-6.0); RBC 4.41 10^6/uL (3.5-6.1); RED CELL DISTRIBUTION WIDTH 13.7 % (11.5-14.5); WHITE BLOOD COUNT 10.5 10^3/ul (4.5-11.0)
[2018-01-25 00:59] LABS: PH,URINE 5.5 (4.7-8.0); URINE APPEARANCE CLEAR (CLEAR); URINE BILIRUBIN NEGATIVE (NEGATIVE); URINE BLOOD NEGATIVE (NEGATIVE); URINE COLOR YELLOW (YELLOW); URINE GLUCOSE (UA) NEGATIVE (NEGATIVE); URINE LEUKOCYTE ESTERASE NEGATIVE Leu/uL (NEGATIVE); URINE PROTEIN TRACE mg/dL (<30 mg/dL)
[2018-01-25 01:08] LABS: ALB/GLOB RATIO 1.1 (1.1-1.8); ALBUMIN 3.7 g/dL (3.0-4.8); ALT/SGPT 32 U/L (7-56); AST/SGOT 40 U/L (14-36); BLOOD UREA NITROGEN 16 mg/dL (7-21); GFR AFRICAN-AMERICAN > 60; GFR NON-AFRICAN AMERICAN > 60; INR 0.96 (0.93-1.08); PARTIAL THROMBOPLASTIN TIME 27.2 Seconds (25.1-36.5); PROTHROMBIN TIME 10.9 SECONDS (9.4-12.5)
[2018-01-25 01:10] LABS: HCG,QUALITATIVE URINE NEGATIVE (NEGATIVE)
[2018-01-25 01:11] LABS: URINE RBC 0 - 2 /hpf (0-2)
[2018-01-25 01:12] LABS: URINE BACTERIA MOD (NEG)
[2018-01-25 01:18] LABS: TROPONIN I < 0.01 ng/mL
[2018-01-25 01:47] LABS: CK-MB 1.5 ng/mL (0.0-3.6)
--- NOTE | 2018-01-25 05:10 | CT ---
EXAM: CT Chest With Intravenous Contrast CLINICAL HISTORY: 42 years old, female; Pain; Abdominal pain; Chest pain; Additional info: Cp radiating to back TECHNIQUE: Axial computed tomography images of the chest with intravenous contrast during the arterial phase of enhancement. All CT scans at this facility use one or more dose reduction techniques, viz.: automated exposure control; ma/kV adjustment per patient size (including targeted exams where dose is matched to indication; i.e. head); or iterative reconstruction technique. Coronal and sagittal reformatted images were created and reviewed. CONTRAST: 146 mL of OMNI 350 administered intravenously. COMPARISON: No relevant prior studies available. FINDINGS: Limitations: No supervisor smoke control view. Motion artifact - mild. Pulmonary arteries: No pulmonary embolism. Aorta: No dissection. No aneurysm. Lungs: Mosaic pattern of lung parenchyma. No consolidation. Few pulmonary nodules, up to 0.3 cm. Pleural space: No significant effusion. No pneumothorax. Heart: Mild cardiomegaly. No significant pericardial effusion. Bones/joints: No acute fracture. Soft tissues: Unremarkable. Lymph nodes: No pathologically enlarged lymph nodes. IMPRESSION: 1. No aortic dissection. 2. Mosaic pattern of lung parenchyma, nonspecific. DDX: Air-trapping, interstitial edema, interstitial pneumonia, interstitial lung disease. Clinical correlation is needed. 3. Pulmonary nodules. For low-risk patients, no follow-up is necessary. For high-risk patients (smoking history or other known risk factors) an optional CT at 12 months could be performed. 4. Incidental/non-acute findings are described above. EXAM: CT Abdomen and Pelvis With Intravenous Contrast CLINICAL HISTORY: 42 years old, female; Pain; Abdominal pain; Chest pain; Additional info: Cp radiating to back TECHNIQUE: Axial computed tomography images of the abdomen and pelvis with intravenous contrast during the arterial phase of enhancement. All CT scans at this facility use one or more dose reduction techniques, viz.: automated exposure control; ma/kV adjustment per patient size (including targeted exams where dose is matched to indication; i.e. head); or iterative reconstruction technique. Coronal and sagittal reformatted images were created and reviewed. CONTRAST: 146 mL of OMNI 350 administered intravenously. COMPARISON: No relevant prior studies available. FINDINGS: Limitations: No supervisor smoke control view. Motion artifact - mild. VASCULATURE: Aorta: No dissection. No aneurysm. Celiac trunk and mesenteric arteries: No occlusion or significant stenosis. Renal arteries: No occlusion or significant stenosis. Iliac arteries: No occlusion or significant stenosis. ABDOMEN: Liver: Unremarkable. No mass. Gallbladder and bile ducts: Cholecystectomy. No significant ductal dilation. Pancreas: No ductal dilation. No mass. Spleen: No splenomegaly. Adrenals: No mass. Kidneys and ureters: No hydronephrosis. No solid mass. Stomach and bowel: No obstruction. No mucosal thickening. PELVIS: Appendix: Normal caliber. No inflammation. Bladder: Unremarkable. Reproductive: 2.5 x 2.4 x 2.6 cm hypodense lesion within RIGHT ovary. ABDOMEN and PELVIS: Intraperitoneal space: No significant fluid collection. No free air. Bones/joints: Probable bone island. No acute fracture. Soft tissues: Tiny umbilical hernia containing fat. Lymph nodes: Subcentimeter short axis lymph node within left hemipelvis. IMPRESSION: 1. No aortic dissection. 2. Probable RIGHT ovarian cyst. Consider ultrasound. 3. Incidental/non-acute findings are described above.
[2018-01-25 05:56] VITALS: O2SAT 98
--- NOTE | 2018-01-25 09:32 | RAD ---
HISTORY: cp COMPARISON: 11/04/2017 FINDINGS: LUNGS: No active pulmonary disease. PLEURA: No significant pleural effusion identified, no pneumothorax apparent. CARDIOVASCULAR: Normal. OSSEOUS STRUCTURES: No significant abnormalities. VISUALIZED UPPER ABDOMEN: Normal. OTHER FINDINGS: None. IMPRESSION: No active disease.
--- NOTE | 2018-01-25 10:11 | CARD ---
APPROVED REPORT EKG Measurement Heart [id number] <Conclusion> Normal sinus rhythm Possible Left atrial enlargement NSSTW changes
--- NOTE | 2018-01-26 00:41 | CARD ---
APPROVED REPORT EKG Measurement Heart [id number] <Conclusion> Normal sinus rhythm Low voltage QRS Borderline ECG
== END 2018-01-25 05:54 | disposition home or self-care (01) ==
LOC: ED 23:36
DX: R07.9 Chest pain, unspecified (principal); I10 Essential (primary) hypertension; Z87.891 Personal history of nicotine dependence
CPT/HCPCS: 71045; 71275; 74175; 80053; 81001; 82550; 82553; 83615; 83735; 84484; 84703; 85025; 85610; 85730; 93005; 96374; 99283; C9113; Q9967

== ENCOUNTER 2018-08-25 14:57 | Emergency (ER) | payer OTHER ==
[2018-08-25 14:57] VITALS: BMI 38.4
[2018-08-25 15:07] VITALS: RESP 18; TEMP 98.2; O2SAT 99
--- NOTE | 2018-08-25 15:30 | ED PDOC ---
Arrival/HPI - General Historian: Patient - History of Present Illness Narrative History of Present Illness (Text): 08/25/18 15:47 43 y/o F with PMHx of HTN, anxiety presents to ED with complaints of non- radiating, 8/10 left-sided chest pain that's worsened with deep breathing, be nding over and palpation, hasn't been relieved with flexeril. Pt reports pain started at 3am overnight, and has remained the same. She denies any inciting trauma to the region. She denies hormone use, recent DVT, leg swelling, recent surgeries, hemoptysis. She denies associated diaphoresis, chest pain, palpitations, shortness, n/v/c/d. Pt reports she had visited her glassine machine tender, Dr. Torres, about 6 months ago, and also underwent stress test about 8 months ago with negative results. PERC criteria score= 0 PMD: Dr. Kb Brown Cardio: Dr. Torres <Ronald Wheat - Last Filed: 08/25/18 19:09> <Aiden Lorenzana - Last Filed: 08/25/18 19:59> - General Chief Complaint: Chest Pain Time Seen by Provider: 08/25/18 15:08 Past Medical History - Provider Review Nursing Documentation Reviewed: Yes - Past History Past History: Non-Contributing - Infectious Disease Hx of Infectious Diseases: None - Tetanus Immunization Tetanus Immunization: Up to Date, Unknown - Past Medical History Past Medical History: No Previous - Cardiac Hx Cardiac Disorders: Yes Hx Hypertension: Yes - Pulmonary Hx Respiratory Disorders: Yes Hx Asthma: Yes Hx Bronchitis: Yes Hx Chronic Obstructive Pulmonary Disease (COPD): No Hx Emphysema: No Hx Pneumonia: No Hx Respiratory Aspiration: No Hx Respiratory Tract Infection: Yes Hx Sleep Apnea: No Hx Tuberculosis: No - Neurological Hx Neurological Disorder: No Hx Alzheimer's Disease: No HX Cerebrovascular Accident: No Hx Dementia: No Hx Dizziness: No Hx Meningitis: No Hx Migraine: No Hx Parkinson's Disease: No Hx Seizures: No Hx Transient Ischemic Attacks (TIA): Yes - HEENT Hx HEENT Disorder: No Hx Blind: No Hx Cataracts: No Hx Deafness: No Hx Difficulty Chewing: No Hx Epistaxis: No Hx Glaucoma: No Hx Macular Degeneration: No - Renal Hx Renal Disorder: No Hx Dialysis: No Hx Kidney Stones: No Hx Neurogenic Bladder: No Hx Pyelonephritis: No Hx Renal Cancer: No Hx Renal Failure: No - Endocrine/Metabolic Hx Endocrine Disorders: No Hx Adrenal Cancer: No Hx Diabetes Insipidus: No Hx Diabetes Mellitus Type 1: No Hx Diabetes Mellitus Type 2: No Hx Hyperthyroidism: No Hx Hypothyroidism: No Hx Systemic Lupus Erythematosus: No - Hematological/Oncological Hx Blood Disorders: No Hx AIDS: No Hx Anemia: No Hx Cancer: No Hx Chemotherapy: No Hx Cirrhosis: No Hx Hemophilia: No Hx Hepatitis A: No Hx Hepatitis B: No Hx Hepatitis C: No Hx Metastasis: No Hx Shingles: No Hx Sickle Cell Disease: No Hx Unexplained Bleeding: No - Integumentary Hx Dermatological Disorder: No Hx Basal Cell Carcinoma: No Hx Eczema: No Hx Melanoma: No Hx Psoriasis: No Hx Squamous Cell Carcinoma: No - Musculoskeletal/Rheumatological Hx Musculoskeletal Disorders: No Hx Arthritis: No Hx Back Pain: No Hx Degenerative Joint Disease: No Hx Falls: No Hx Fractures: No Hx Gout: No Hx Herniated Disk: No Hx Myasthenia Gravis: No Hx Osteoarthritis: No Hx Osteomyelitis: No Hx Osteoporosis: No Hx Rhabdomyolysis: No Hx Spinal Stenosis: No Hx Unsteady Gait: No - Gastrointestinal Hx Gastrointestinal Disorders: No Hx Colostomy: No Hx Crohn's Disease: No Hx Diverticulitis: No Hx Gall Bladder Disease: No Hx Gastroesophageal Reflux: No Hx Gastrointestinal Ulcer: No Hx Ileostomy: No Hx Liver Failure: No Hx Pancreatitis: No HX Swallowing Problems: No - Genitourinary/Gynecological Hx Genitourinary Disorders: No Hx Incontinence: No Hx Prostate Problems: No Hx Sexually Transmitted Diseases: No Hx Urinary Tract Infection: No - Psychiatric Hx Psychophysiologic Disorder: No Hx Anxiety: Yes Hx Bipolar Disorder: No Hx Depression: No Hx Emotional Abuse: No Hx Hallucinations: No Hx Panic Disorder: No Hx Post Traumatic Stress Disorder: No Hx Psychosis: No Hx Physical Abuse: No Hx Schizophrenia: No Hx Sexual Abuse: No Hx Substance Use: No - Surgical History Hx Cholecystectomy: Yes - Anesthesia Hx Anesthesia: Yes Hx Anesthesia Reactions: No Hx Malignant Hyperthermia: No - Suicidal Assessment Feels Threatened In Home Enviroment: No <Ronald Wheat - Last Filed: 08/25/18 19:09> Family/Social History - Physician Review Nursing Documentation Reviewed: Yes Family/Social History: Unknown Family HX Smoking Status: Former Smoker Hx Alcohol Use: No Hx Substance Use: No Hx Substance Use Treatment: No <Ronald Wheta - Last Filed: 08/25/18 19:09> Allergies/Home Meds <JarretRonald raphael - Last Filed: 08/25/18 19:09> <HarriettAiden Angela - Last Filed: 08/25/18 19:59> Allergies/Adverse Reactions: Allergies naproxen [From Aleve] Allergy (Verified 01/24/18 23:44) RASH shellfish derived Allergy (Verified 01/24/18 23:44) ANAPHYLAXIS Home Medications: Home Meds Medication Instructions Recorded Confirmed RX: Metoprolol Succinate 50 mg PO DAILY 09/24/14 01/24/18 RX: Alprazolam 2 mg PO DAILY PRN 04/03/15 01/24/18 RX: Albuterol HFA [Ventolin HFA 90 1 puff IH QID PRN 11/04/17 01/24/18 mcg/actuation (8 g)] RX: Aspirin [Aspirin Chewable] 81 mg PO DAILY 11/04/17 01/24/18 Alprazolam [Xanax] 2 mg PO BID 01/27/18 01/27/18 Aspirin [Ecotrin] 81 mg PO DAILY 01/27/18 01/27/18 Cholecalciferol (Vitamin D3) 2,000 unit PO DAILY 01/27/18 01/27/18 [Vitamin D3] Ibuprofen [Motrin] 600 mg PO PRN PRN 01/27/18 01/27/18 Metoprolol Tartrate [Lopressor] 50 mg PO DAILY 01/27/18 01/27/18 Vitamin B Complex [Vitamin B50 1 cap PO DAILY 01/27/18 01/27/18 Super Complex] Review of Systems - Review of Systems Constitutional: Normal Eyes: Normal ENT: Normal Respiratory: Normal Cardiovascular: Normal. absent: Palpitations, Calf Pain Gastrointestinal: Normal Genitourinary Female: Normal Musculoskeletal: Other (L anterior rib pain ) Skin: Normal Neurological: Normal Endocrine: Normal Hemo/Lymphatic: Normal Psychiatric: Normal <Ronald Wheat - Last Filed: 08/25/18 19:09> Physical Exam Vital Signs Reviewed: Yes Vital Signs Temp Pulse Resp BP Pulse Ox 08/25/18 15:06 98.2 F 75 18 115/74 99 Temperature: Afebrile Blood Pressure: Normal Pulse: Regular Respiratory Rate: Normal Appearance: Positive for: Well-Appearing, Non-Toxic, Comfortable Pain Distress: None Mental Status: Positive for: Alert and Oriented X 3 - Systems Exam Head: Present: Atraumatic, Normocephalic Pupils: Present: PERRL Extroacular Muscles: Present: EOMI Conjunctiva: Present: Normal Mouth: Present: Moist Mucous Membranes Neck: Present: Normal Range of Motion Respiratory/Chest: Present: Clear to Auscultation, Good Air Exchange, Tender to Palpation (L midclavicular rib 5-7 TTP. Rib 3 midclavicular TTP). No: Respiratory Distress, Accessory Muscle Use Cardiovascular: Present: Regular Rate and Rhythm, Normal S1, S2. No: Murmurs Abdomen: No: Tenderness, Distention, Peritoneal Signs Back: Present: Normal Inspection Upper Extremity: Present: Normal Inspection. No: Cyanosis, Edema Lower Extremity: Present: Normal Inspection. No: Edema Neurological: Present: GCS=15, CN II-XII Intact, Speech Normal Skin: Present: Warm, Dry, Normal Color. No: Rashes Psychiatric: Present: Alert, Oriented x 3, Normal Insight, Normal Concentration <Ronald Wheat - Last Filed: 08/25/18 19:09> Vital Signs Temp Pulse Pulse Resp BP Pulse Ox 08/25/18 19:12 98.2 F 68 18 117/73 99 08/25/18 19:02 98.2 F 68 18 117/73 99 08/25/18 16:32 69 18 111/64 99 08/25/18 15:10 75 08/25/18 15:06 98.2 F 75 18 115/74 99 <Aiden Lorenzana - Last Filed: 08/25/18 19:59> Medical Decision Making ED Course and Treatment: 08/25/18 15:55 Impression: 43 y/o F with PMHx of HTN, anxiety presents to ED with complaints of L sided atypical chest pain Prior notes & results have been reviewed Differential diagnosis includes but is not limited to: Atypical chest pain Plan: Pt is PERC negative Chest xray 2-view 08/25/18 15:56 08/25/18 19:09 Pt re-evaluated. Results given to pt. Pt agreeable for d/c with tylenol. Agrees with plan and follow-up instructions - EKG Interpretation EKG Interpretation (Text): 08/25/18 15:30 NSR Septal infarct, age undetermined VR 75bpm QTc: 428ms <Ronald Wheat - Last Filed: 08/25/18 19:09> ED Course and Treatment: Seen and examined with resident. 43 y/o F p/w chest pain. Pain reproducible on exam. - Lab Interpretations Lab Results: Troponin I < 0.01 ng/mL 08/25/18 17:45 Total Bilirubin 0.5 mg/dL (0.2-1.3) 08/25/18 17:45 AST 24 U/L (14-36) 08/25/18 17:45 ALT 31 U/L (7-56) 08/25/18 17:45 Alkaline Phosphatase 58 U/L (38-126) 08/25/18 17:45 Total Protein 7.0 g/dL (5.8-8.3) 08/25/18 17:45 Albumin 3.7 g/dL (3.0-4.8) 08/25/18 17:45 Globulin 3.3 gm/dL 08/25/18 17:45 Albumin/Globulin Ratio 1.1 (1.1-1.8) 08/25/18 17:45 - RAD Interpretation Radiology Orders: 08/25/18 15:41 CHEST TWO VIEWS (PA/LAT) [RAD] Stat <Aiden Lorenzana - Last Filed: 08/25/18 19:59> - PA / CHIEF SOLUTION ARCHITECT / Resident Statement / has reviewed & agrees with the documentation as recorded. / has examined the patient and agrees with the treatment plan. <Ronald Wheat - Last Filed: 08/25/18 19:09> Disposition/Present on Arrival - Present on Arrival Any Indicators Present on Arrival: No History of DVT/PE: No History of Uncontrolled Diabetes: No Urinary Catheter: No History of Decub. Ulcer: No History Surgical Site Infection Following: None - Disposition Have Diagnosis and Disposition been Completed?: Yes Disposition Time: 18:54 <Ronald Wheta - Last Filed: 08/25/18 19:09> <Aiden Lorenzana - Last Filed: 08/25/18 19:59> - Disposition Diagnosis: Atypical chest pain Disposition: HOME/ ROUTINE Condition: GOOD Discharge Instructions (ExitCare): Chest Pain That Is Not Caused by the Heart (DC), Costochondritis (DC) Prescriptions: Acetaminophen [Tylenol] 325 mg PO Q6H PRN #20 capsule PRN Reason: Pain, Moderate (4-7) Referrals: Kb Brown MD [Primary Care Provider] - Follow up with primary Forms: [employer] (Pashto)
--- NOTE | 2018-08-25 17:51 | RAD ---
Date of service: 08/25/2018 HISTORY: Chest pain COMPARISON: 01/25/2018 TECHNIQUE: Chest PA and lateral FINDINGS: LINES AND TUBES: None. LUNG AND PLEURA: The lungs are well inflated and clear. No pleural effusion or pneumothorax. HEART AND MEDIASTINUM: The heart is not enlarged. No aortic atherosclerotic calcification present. The hilar and mediastinal contours are within normal limits. SKELETAL STRUCTURES: The bony structures are within normal limits for the patient's age. VISUALIZED UPPER ABDOMEN: Normal. OTHER FINDINGS: None. IMPRESSION: No active pulmonary disease.
[2018-08-25 18:13] LABS: BASO # 0.09 K/mm3 (0.0-2.0); BASO % 0.8 % (0.0-3.0); EOS # 0.8 (0.0-0.7); GRAN # 6.19 (1.4-6.5); GRAN % 53.8 % (50.0-68.0); HEMOGLOBIN 12.7 g/dL (12.0-16.0); LYMPH # 3.8 (1.2-3.4); LYMPH % 32.7 % (22.0-35.0); MEAN CELL VOLUME 86.6 fl (80.0-105.0); MEAN CORPUSCULAR HEMOGLOBIN 28.3 pg (25.0-35.0); MEAN CORPUSCULAR HGB CONC 32.7 g/dl (31.0-37.0); MEAN PLATELET VOLUME 9.6 fl (7.0-11.0); MONO # 0.7 (0.1-0.6); MONO % 5.7 % (1.0-6.0); RBC 4.48 10^6/uL (3.5-6.1); WHITE BLOOD COUNT 11.5 10^3/uL (4.5-11.0)
[2018-08-25 18:30] LABS: TROPONIN I < 0.01 ng/mL
[2018-08-25 18:33] LABS: ALB/GLOB RATIO 1.1 (1.1-1.8); ALBUMIN 3.7 g/dL (3.0-4.8); ALT/SGPT 31 U/L (7-56); AST/SGOT 24 U/L (14-36); BLOOD UREA NITROGEN 16 mg/dL (7-21); GFR NON-AFRICAN AMERICAN > 60
--- NOTE | 2018-08-25 18:34 | CARD ---
APPROVED REPORT Date of service: 08/25/2018 EKG Measurement Heart [id number] <Conclusion> Normal sinus rhythm Septal infarct, age undetermined Abnormal ECG
[2018-08-25 19:03] VITALS: BP 117/73; PULSE 68
== END 2018-08-25 19:12 | disposition home or self-care (01) ==
LOC: ED 14:57
DX: R07.89 Other chest pain (principal); I10 Essential (primary) hypertension; Z86.73 Personal history of transient ischemic attack (TIA), and cerebral infarction without residual deficits; Z87.891 Personal history of nicotine dependence